=== PATIENT | female | born 1935 | race Caucasian/White ===

== ENCOUNTER 2018-06-01 08:55 | Emergency (ER) | payer MEDICARE, OTHER, SELFPAY ==
[2018-06-01 09:10] VITALS: BP 90/49; PULSE 51; RESP 18; TEMP 36.6; O2SAT 96; BMI 27.4
--- NOTE | 2018-06-01 09:45 | DI.RAD.S_ITS ---
PROCEDURE: XR HAND RT MIN 3V INDICATIONS: right wrist and hand pain after ground level fall TECHNIQUE: 3 views of the hand(s) acquired. COMPARISON: None. FINDINGS: Bones: No acute fracture or dislocation. There is diffuse interphalangeal joint space narrowing and severe first CMC joint osteoarthritis. Soft tissues: No suspicious soft tissue calcifications. IMPRESSION: 1. No acute radiographic findings. If pain persists, repeat study in 5-7 days is recommended to exclude occult fracture. 2. Please note, a questionable distal radial fracture was described on the forearm films. Dedicated views of the wrist would be helpful to evaluate for nondisplaced radial fracture. Alternatively, CT of the wrist would be helpful. Dictated by: Jessica Lai M.D. on 06/01/2018 at 10:08 Approved by: Jessica Lai M.D. on 06/01/2018 at 10:09
--- NOTE | 2018-06-01 09:45 | DI.RAD.S_ITS ---
PROCEDURE: XR WRIST RT MIN 3V INDICATIONS: right hand and wrist pain after ground level fall TECHNIQUE: 4 views of the wrist were acquired. COMPARISON: [facility], CR, XR HAND RT MIN 3V, 06/01/2018, 9:50. FINDINGS: Bones: There is a minimally displaced fracture of the distal ulnar shaft. There is a a subtle radiolucent line is present in the distal radius. It is unclear whether there is a nondisplaced fracture in this region. Scaphoid view: The scaphoid is intact. Soft tissues: No suspicious soft tissue calcifications. IMPRESSION: 1. Minimally displaced ulnar diaphyseal fracture. 2. Questionable distal radial fracture. Dedicated view of the wrist would be helpful to further characterize findings. Dictated by: Jessica Lai M.D. on 06/01/2018 at 10:07 Approved by: Jessica Lai M.D. on 06/01/2018 at 10:08
--- NOTE | 2018-06-01 10:22 | ED.FALL ---
HPI - Fall General Chief Complaint: Fall Stated Complaint: GLF-hit head, thumb pain/bleeding Time Seen by Provider: 06/01/18 10:04 Source: patient and family () Limitations: no limitations History of Present Illness HPI Narrative: This is an 82-year-old female who was stepping out of her vehicle when she tripped or lost her balance and fell onto the ground. Patient did strike her head she fell onto her right side. She denies any loss of consciousness. She has bruising but denies any headache. She has not had any vision changes. She denies any neck or back injuries. She has a little bit of discomfort in her right shoulder trapezius region but has full range of motion and states that she was up and walked into the emergency department. She also has pain in her right wrist and a laceration in the web of her right thumb and 2nd finger. She also has some abrasions and superficial lacerations on her other hand as well. Patient denies any chest pain or shortness of breath. She denies any syncope. She denies any nausea or vomiting. No GI or urinary symptoms. She does not have any numbness or tingling in her extremities. She is able to move her thumb. states it seemed deformed but does not seem that way now she does have sensation in the thumb and is able to flex and extend it although it is uncomfortable. Patient is also able to move her wrist but it is also uncomfortable. complaint: fall Related Data Home Medications Medication Instructions Recorded Confirmed CU/MN/SE/VIT A/VIT B2/VIT C/ 1 tab PO QDAY #0 12/02/12 (#ICAPS ORIGINAL) [CALCIUM WITH VITAMIN] 1 PO QDAY #0 12/02/12 ACETAMINOPHEN 650 mg PO PRN #0 02/26/13 Previous Rx's Medication Instructions Recorded levothyroxine [Synthroid] 75 mcg PO QAM #90 tab 06/19/16 citalopram [Celexa] 20 mg PO QDAY #90 tab 12/21/16 omeprazole 20 mg PO QDAY #90 cap 02/19/17 estradiol [Estrace] 1 gm VAGINAL QDAY #30 gm 04/17/17 nitrofurantoin monohyd/m-cryst 100 mg PO BID #10 cap 04/17/17 [Macrobid] hydrocodone-acetaminophen [[place]] 1 tab PO QID PRN #10 tab 06/01/18 Allergies Allergy/AdvReac Type Severity Reaction Status Date / Time zoledronic acid Allergy Unknown Verified 06/01/18 09:41 WALNUT Allergy Unknown Uncoded 06/01/18 09:41 Review of Systems Review of Systems All systems reviewed & are unremarkable except as noted in HPI and below Constitutional Denies headache(s) ENT Ears, Nose, Mouth, and Throat: Reports as per HPI, Denies vertigo, Denies dizziness, Denies facial pain, Denies headache(s) and Denies neck pain Cardiovascular Denies chest pain, Denies syncope, Denies irregular heart rhythm, Denies lightheadedness, Denies palpitations, Denies dyspnea, Denies dyspnea on exertion and Denies orthopnea Respiratory Denies cough, Denies dyspnea, Denies dyspnea on exertion and Denies wheezing Gastrointestinal Gastrointestinal: Denies abdominal pain, Denies change in bowel habits, Denies diarrhea, Denies nausea and Denies vomiting Genitourinary Reports as per HPI Musculoskeletal Reports as per HPI, Denies abnormal gait, Denies neck pain, Denies numbness and Denies tingling Integumentary/Breasts Reports bleeding lesions (Laceration of right hand) Neurologic Denies abnormal gait, Denies confusion, Denies vertigo, Denies dizziness, Denies syncope, Denies headache(s), Denies focal weakness, Denies memory loss, Denies numbness, Denies other visual disturbances and Denies tingling Psychiatric Denies confusion and Denies memory loss Endocrine Denies palpitations Allergic/Immunologic Denies wheezing Exam Initial Vital Signs Initial Vital Signs: Vital Signs Temperature 97.9 F 06/01/18 09:10 Pulse Rate 51 L 06/01/18 09:10 Respiratory Rate 18 06/01/18 09:10 Blood Pressure 90/49 L 06/01/18 09:10 Pulse Oximetry 96 06/01/18 09:10 Const General: cooperative, well developed and acute distress (Mild) Nutritional Appearance: well nourished Orientation: alert, awake, oriented x3 and not confused [facility] Head: normocephalic, No Sosa's sign, contusion (Right forehead/scalp), No hematoma, No laceration, No raccoon eyes and No periorbital ecchymosis Ears: hearing grossly normal bilaterally, external ears normal and TM's normal bilaterally Nose: external nose normal and nares normal Face and sinus: normal facial exam, sinuses nontender, face symmetric and no ecchymosis Mouth: oral mucosae normal and moist mucous membranes Teeth and gingiva: dentition normal Throat: posterior oropharynx normal Neck Neck: normal visual inspection, full ROM, trachea midline, No lymphadenopathy, No midline deformity and No JVD Lymphatic: No lymphedema Chest Chest: normal inspection of the chest Resp Effort & Inspection: normal respiratory effort, able to speak in complete sentences, no respiratory distress and no use of accessory muscles Auscultation: clear to auscultation bilaterally, no rales, no rhonchi and no wheezes Cardio Rate: regular rate Rhythm: regular rhythm Heart Sounds: no click, no gallops, no murmurs and no rubs Pulses: normal peripheral pulses GI Inspection: non-distended Palpation: soft, no hepatosplenomegaly, No guarding, No pulsatile mass and No tender Auscultation: normal bowel sounds General: No CVA tenderness Back/Spine/Pelvis Back: No back tenderness and No CVA tenderness Cervical Spine: cervical ROM normal, No pain with cervical ROM and No cervical spinal tenderness Thoracic/Lumbar Spine: thoracic and lumbar spine normal to inspection, No thoracic spinal tenderness and No lumbar spinal tenderness Neuro General: alert, oriented x3, gait normal and no focal motor deficits Cranial Nerves: CN's II-XI intact bilaterally Speech: speech normal Gait: normal gait Motor: muscle tone normal throughout and strength 5/5 throughout Sensory Exam: no sensory deficits noted Extrem Right upper extremity: shoulder/upper arm Details: normal to inspection and normal ROM; no tenderness, no abrasions, no ecchymosis, no crepitus and no deformity and hand (Laceration between the 1st and 2nd finger.) Details: tendon exam normal (I am able to visualize the tendon on the lateral side the thumb. Appears intact and patient's exam is normal), normal ROM of fingers and laceration (Laceration is 3.5 cm in length. It is subcu. Tendon is visualized but not lacerated. Patient has 5/5 strength of the thumb and full range of motion. She has normal sensation in all 5 fingers); no swelling and no foreign bodies [facility] Surgical History Status post hip surgery (Acute) S/P total abdominal hysterectomy and bilateral salpingo-oophorectomy Status post breast lumpectomy Status post delivery Status post hernia repair Social History marital status: household members: spouse lives independently: Yes housing: house Smoking Status: Former smoker Procedures Laceration Repair Laceration 1: Site: upper extremity (Right hand between thumb and forefinger) Size (cm): 4 Description: flap and irregular Depth: simple, single layer Local Anesthetic: lidocaine 1% Amount of anesthesia used (mL): 6 Pre-repair: wound explored, irrigated extensively and deep structures intact Skin layer closed with: nylon Size (cm): 4-0 Number of sutures: 9 Technique: simple, interrupted Course Orders Ordered: ED Orders 06/01/18 10:22 CT head/brain wo con Stat Discontinued Medications Tetanus/Diphtheria Toxoids (Td) 0.5 ml IM .ONCE ONE Stop: 06/01/18 13:04 Last Admin: 06/01/18 13:12 Dose: 0.5 ml Consultations Consultation #1: Dr. Pearosn, Images were reviewed. Plan for long arm splint. Patient and family asking if they can follow up after 10 days as they have a trip and will be back in town after the Dr. madsen states that this is fine we discussed Um x-ray imaging as well as patient had a laceration in the web of her thumb. There was some tendon exposure but does appear intact and patient does appear to have good sensation as well as strength and range of motion in the thumb itself. Time: 12:17 Vital Signs - 8 hr 06/01/18 12:00 06/01/18 13:05 Pulse Rate 62 65 Respiratory Rate 17 17 Blood Pressure [Right Arm] 126/61 145/59 H Pulse Oximetry 95 92 MDM - Fall Imaging Data CT scan - head: Radiologist's impression: [address] [address] [address] Scan Report Signed Patient: Delia Meyers MR#: [id number] : 1935 Acct:[id number] Age/Sex: 82 / F Date of Service: 06/01/18 Loc: ED Accession Number: [id number] Procedure: CT head/brain wo con Ordering Provider: Conchita Rios D.O. PROCEDURE: CT HEAD/BRAIN WO CON INDICATIONS: Ground level fall, contusion on forehead TECHNIQUE: Noncontrast 4.5 mm thick angled axial sections acquired from the foramen magnum to the vertex, with coronal and sagittal reformats. For radiation dose reduction, the following was used: automated exposure control, adjustment of mA and/or kV according to patient size. COMPARISON: [facility], CT, SOFT TISSUE NECK W CONTRAST, 10/29/2008, 11:04. FINDINGS: Image quality: Excellent. CSF spaces: Basal cisterns are patent. No extra-axial fluid collections. The ventricles are symmetric in size and shape. Brain: No intracranial bleeds or masses. There is cerebral volume loss for age, with resultant ventricular and sulcal prominence. There are periventricular and deep white matter chronic small vessel ischemic changes. There is intracranial internal carotid artery atherosclerosis. Skull and face: There is right frontal soft tissue swelling. Calvarium and visualized facial bones appear intact, without suspicious lesions. There are extensive arachnoid granulations within the posterior fossa. These are similar in extent to the CT of the neck dated 10/29/08. Sinuses: Visualized sinuses and mastoids are clear. IMPRESSION: 1. No acute intracranial findings. 2. Right frontal soft tissue swelling without underlying calvarial abnormality. 3. Extensive findings likely associated with chronic microvascular ischemic changes. Dictated by: Jessica Lai M.D. on 06/01/2018 at 10:46 Approved by: Jessica Lai M.D. on 06/01/2018 at 10:49 Right wrist x-ray: Radiologist's impression: Patient: Delia Meyers MR#: [id number] : 1935 Acct:[id number] Age/Sex: 82 / F Date of Service: 06/01/18 Loc: ED Accession Number: [id number] Procedure: XR wrist RT min 3V Ordering Provider: Conchita Rios D.O. PROCEDURE: XR WRIST RT MIN 3V INDICATIONS: right hand and wrist pain after ground level fall TECHNIQUE: 4 views of the wrist were acquired. COMPARISON: [facility], CR, XR HAND RT MIN 3V, 06/01/2018, 9:50. FINDINGS: Bones: There is a minimally displaced fracture of the distal ulnar shaft. There is a a subtle radiolucent line is present in the distal radius. It is unclear whether there is a nondisplaced fracture in this region. Scaphoid view: The scaphoid is intact. Soft tissues: No suspicious soft tissue calcifications. IMPRESSION: 1. Minimally displaced ulnar diaphyseal fracture. 2. Questionable distal radial fracture. Dedicated view of the wrist would be helpful to further characterize findings. Right hand x-ray: Radiologist's impression: Patient: Delia Meyers MR#: [id number] : 1935 Acct:[id number] Age/Sex: 82 / F Date of Service: 06/01/18 Loc: ED Accession Number: [id number] Procedure: XR hand RT min 3V Ordering Provider: Conchita Rios D.O. PROCEDURE: XR HAND RT MIN 3V INDICATIONS: right wrist and hand pain after ground level fall TECHNIQUE: 3 views of the hand(s) acquired. COMPARISON: None. FINDINGS: Bones: No acute fracture or dislocation. There is diffuse interphalangeal joint space narrowing and severe first CMC joint osteoarthritis. Soft tissues: No suspicious soft tissue calcifications. IMPRESSION: 1. No acute radiographic findings. If pain persists, repeat study in 5-7 days is recommended to exclude occult fracture. 2. Please note, a questionable distal radial fracture was described on the forearm films. Dedicated views of the wrist would be helpful to evaluate for nondisplaced radial fracture. Alternatively, CT of the wrist would be helpful. Dictated by: Jessica Lai M.D. on 06/01/2018 at 10:08 Approved by: Jessica Lai M.D. on 06/01/2018 at 10:09 [facility] Narrative Medical decision making narrative: Patient's a contusion and based on her age in does have risk for bleeding and head CT was ordered which was negative. Patient had pain in her wrist and so x-ray of hand and wrist was ordered and does show and ulnar fracture. There is questionable radial fracture patient is not tender on that side so less suspicious but she will be splinted regardless. Patient also has a laceration between the 1st and 2nd fingers on her right hand. There was tended noted but does not appear to be involved and does appear to be intact with full range of motion, normal sensation no weakness in with passive and active movement. Patient was sutured. She deferred any pain medication here in the department but was given a script for pain medication. Plan to follow up with Dr. madsen who is her prior orthopedic surgeon and was admissions dean today. He also reviewed her films. Plan for longarm splint. Family did ask if she can follow up after the they are planning on traveling and Dr. Pearson states that would be fine. Patient splint evaluate after placement by nursing and she is NVI afterwards except for some slight numbness in the thumb which occurred after anesthesia for laceration repair. Discharge Plan Departure Patient Disposition: Home Clinical Impression: Fracture of wrist, closed, Contusion of head, Hand laceration Discharge Date/Time: 06/01/18 13:47 Interventions: ED Discharge Assessment Last Done: 06/01/18 13:47 Instructions: DI for Wrist Fracture, DI for Laceration Repair -- Simple Activity Restrictions/Additional Instructions: Call tomorrow morning to set up an appointment with Dr. Pearson for follow-up. return to the emergency department for fevers, signs of infection inter laceration, new or increasing pain any new or severe headaches, vision changes, vomiting, chest pain or shortness of breath or other new or concerning symptoms. You may take pain medication as needed this medication can make you sleepy do not drive, perform hazards activities or make any major decisions while taking it. Wound Care: Keep wound(s) clean and dry. Wash daily with soap and water only. Do not use over the counter products (alcohol or peroxide)on the wounds unless instructed by a physician. If wound condition worsens (increased/expanding redness, developing fluid blisters, or worsening pain), either contact your doctor for an urgent re-assessment , or return to the Emergency Department. Return to the Emergency Department for any new or worsening symptoms. Return to the ED, urgent care, or vist a primary care doctor for removal or suture or awilda in 7-10 days. Splint Care: Keep splint clean and dry. Elevated affected body part to decrease swelling. OK to use ice pack on the affected body part. Use for 15-20 minutes each time, for 5-6x per day. If you develop worsening pain, numbness, tingling, discoloration of the affected body part, loosen the splint by loosening the TAVARES wrap, and either see your doctor for an urgent re-assessment, or return to the Emergency Department. Return to the Emergency Department for any new or worsening symptoms. Prescriptions: New hydrocodone-acetaminophen [[place]] 5-325 mg tablet 1 tab PO QID PRN (Reason: pain) Qty: 10 RF: 0 No Action CU/MN/SE/VIT A/VIT B2/VIT C/ (#ICAPS ORIGINAL) 1 tab PO QDAY Qty: 0 RF: 0 [CALCIUM WITH VITAMIN] 1 PO QDAY Qty: 0 RF: 0 ACETAMINOPHEN 650 mg PO PRN Qty: 0 RF: 0 levothyroxine [Synthroid] 75 MCG tablet 75 mcg PO QAM Qty: 90 RF: 3 citalopram [Celexa] 20 MG tablet 20 mg PO QDAY Qty: 90 RF: 0 omeprazole 20 MG capsule,delayed release(DR/EC) 20 mg PO QDAY Qty: 90 RF: 0 estradiol [Estrace] 0.01 % cream 1 gm Vaginal QDAY Qty: 30 RF: 0 nitrofurantoin monohyd/m-cryst [Macrobid] 100 MG capsule 100 mg PO BID Qty: 10 RF: 0
[2018-06-01 10:59] VITALS: BP 135/56; PULSE 61; RESP 16; O2SAT 96
[2018-06-01 12:00] VITALS: BP 126/61; PULSE 62; RESP 17; O2SAT 95
--- NOTE | 2018-06-01 12:28 | ED_ITS ---
HPI - Fall General Chief Complaint: Fall Stated Complaint: GLF-hit head, thumb pain/bleeding Time Seen by Provider: 06/01/18 10:04 Source: patient and family () Limitations: no limitations History of Present Illness HPI Narrative: This is an 82-year-old female who was stepping out of her vehicle when she tripped or lost her balance and fell onto the ground. Patient did strike her head she fell onto her right side. She denies any loss of consciousness. She has bruising but denies any headache. She has not had any vision changes. She denies any neck or back injuries. She has a little bit of discomfort in her right shoulder trapezius region but has full range of motion and states that she was up and walked into the emergency department. She also has pain in her right wrist and a laceration in the web of her right thumb and 2nd finger. She also has some abrasions and superficial lacerations on her other hand as well. Patient denies any chest pain or shortness of breath. She denies any syncope. She denies any nausea or vomiting. No GI or urinary symptoms. She does not have any numbness or tingling in her extremities. She is able to move her thumb. states it seemed deformed but does not seem that way now she does have sensation in the thumb and is able to flex and extend it although it is uncomfortable. Patient is also able to move her wrist but it is also uncomfortable. complaint: fall Related Data Home Medications Medication Instructions Recorded Confirmed CU/MN/SE/VIT A/VIT B2/VIT C/ 1 tab PO QDAY #0 12/02/12 (#ICAPS ORIGINAL) [CALCIUM WITH VITAMIN] 1 PO QDAY #0 12/02/12 ACETAMINOPHEN 650 mg PO PRN #0 02/26/13 Previous Rx's Medication Instructions Recorded levothyroxine [Synthroid] 75 mcg PO QAM #90 tab 06/19/16 citalopram [Celexa] 20 mg PO QDAY #90 tab 12/21/16 omeprazole 20 mg PO QDAY #90 cap 02/19/17 estradiol [Estrace] 1 gm VAGINAL QDAY #30 gm 04/17/17 nitrofurantoin monohyd/m-cryst 100 mg PO BID #10 cap 04/17/17 [Macrobid] hydrocodone-acetaminophen [[place]] 1 tab PO QID PRN #10 tab 06/01/18 Allergies Allergy/AdvReac Type Severity Reaction Status Date / Time zoledronic acid Allergy Unknown Verified 06/01/18 09:41 WALNUT Allergy Unknown Uncoded 06/01/18 09:41 Review of Systems Review of Systems All systems reviewed & are unremarkable except as noted in HPI and below Constitutional Denies headache(s) ENT Ears, Nose, Mouth, and Throat: Reports as per HPI, Denies vertigo, Denies dizziness, Denies facial pain, Denies headache(s) and Denies neck pain Cardiovascular Denies chest pain, Denies syncope, Denies irregular heart rhythm, Denies lightheadedness, Denies palpitations, Denies dyspnea, Denies dyspnea on exertion and Denies orthopnea Respiratory Denies cough, Denies dyspnea, Denies dyspnea on exertion and Denies wheezing Gastrointestinal Gastrointestinal: Denies abdominal pain, Denies change in bowel habits, Denies diarrhea, Denies nausea and Denies vomiting Genitourinary Reports as per HPI Musculoskeletal Reports as per HPI, Denies abnormal gait, Denies neck pain, Denies numbness and Denies tingling Integumentary/Breasts Reports bleeding lesions (Laceration of right hand) Neurologic Denies abnormal gait, Denies confusion, Denies vertigo, Denies dizziness, Denies syncope, Denies headache(s), Denies focal weakness, Denies memory loss, Denies numbness, Denies other visual disturbances and Denies tingling Psychiatric Denies confusion and Denies memory loss Endocrine Denies palpitations Allergic/Immunologic Denies wheezing Exam Initial Vital Signs Initial Vital Signs: Vital Signs Temperature 97.9 F 06/01/18 09:10 Pulse Rate 51 L 06/01/18 09:10 Respiratory Rate 18 06/01/18 09:10 Blood Pressure 90/49 L 06/01/18 09:10 Pulse Oximetry 96 06/01/18 09:10 Const General: cooperative, well developed and acute distress (Mild) Nutritional Appearance: well nourished Orientation: alert, awake, oriented x3 and not confused [facility] Head: normocephalic, No Sosa's sign, contusion (Right forehead/scalp), No hematoma, No laceration, No raccoon eyes and No periorbital ecchymosis Ears: hearing grossly normal bilaterally, external ears normal and TM's normal bilaterally Nose: external nose normal and nares normal Face and sinus: normal facial exam, sinuses nontender, face symmetric and no ecchymosis Mouth: oral mucosae normal and moist mucous membranes Teeth and gingiva: dentition normal Throat: posterior oropharynx normal Neck Neck: normal visual inspection, full ROM, trachea midline, No lymphadenopathy, No midline deformity and No JVD Lymphatic: No lymphedema Chest Chest: normal inspection of the chest Resp Effort & Inspection: normal respiratory effort, able to speak in complete sentences, no respiratory distress and no use of accessory muscles Auscultation: clear to auscultation bilaterally, no rales, no rhonchi and no wheezes Cardio Rate: regular rate Rhythm: regular rhythm Heart Sounds: no click, no gallops, no murmurs and no rubs Pulses: normal peripheral pulses GI Inspection: non-distended Palpation: soft, no hepatosplenomegaly, No guarding, No pulsatile mass and No tender Auscultation: normal bowel sounds General: No CVA tenderness Back/Spine/Pelvis Back: No back tenderness and No CVA tenderness Cervical Spine: cervical ROM normal, No pain with cervical ROM and No cervical spinal tenderness Thoracic/Lumbar Spine: thoracic and lumbar spine normal to inspection, No thoracic spinal tenderness and No lumbar spinal tenderness Neuro General: alert, oriented x3, gait normal and no focal motor deficits Cranial Nerves: CN's II-XI intact bilaterally Speech: speech normal Gait: normal gait Motor: muscle tone normal throughout and strength 5/5 throughout Sensory Exam: no sensory deficits noted Extrem Right upper extremity: shoulder/upper arm Details: normal to inspection and normal ROM; no tenderness, no abrasions, no ecchymosis, no crepitus and no deformity and hand (Laceration between the 1st and 2nd finger.) Details: tendon exam normal (I am able to visualize the tendon on the lateral side the thumb. Appears intact and patient's exam is normal), normal ROM of fingers and laceration (Laceration is 3.5 cm in length. It is subcu. Tendon is visualized but not lacerated. Patient has 5/5 strength of the thumb and full range of motion. She has normal sensation in all 5 fingers); no swelling and no foreign bodies [facility] Surgical History Status post hip surgery (Acute) S/P total abdominal hysterectomy and bilateral salpingo-oophorectomy Status post breast lumpectomy Status post delivery Status post hernia repair Social History marital status: household members: spouse lives independently: Yes housing: house Smoking Status: Former smoker Procedures Laceration Repair Laceration 1: Site: upper extremity (Right hand between thumb and forefinger) Size (cm): 4 Description: flap and irregular Depth: simple, single layer Local Anesthetic: lidocaine 1% Amount of anesthesia used (mL): 6 Pre-repair: wound explored, irrigated extensively and deep structures intact Skin layer closed with: nylon Size (cm): 4-0 Number of sutures: 9 Technique: simple, interrupted Course Orders Ordered: ED Orders 06/01/18 10:22 CT head/brain wo con Stat Discontinued Medications Tetanus/Diphtheria Toxoids (Td) 0.5 ml IM .ONCE ONE Stop: 06/01/18 13:04 Last Admin: 06/01/18 13:12 Dose: 0.5 ml Consultations Consultation #1: Dr. Pearson, Images were reviewed. Plan for long arm splint. Patient and family asking if they can follow up after 10 days as they have a trip and will be back in town after the Dr. madsen states that this is fine we discussed Um x-ray imaging as well as patient had a laceration in the web of her thumb. There was some tendon exposure but does appear intact and patient does appear to have good sensation as well as strength and range of motion in the thumb itself. Time: 12:17 Vital Signs - 8 hr 06/01/18 12:00 06/01/18 13:05 Pulse Rate 62 65 Respiratory Rate 17 17 Blood Pressure [Right Arm] 126/61 145/59 H Pulse Oximetry 95 92 MDM - Fall Imaging Data CT scan - head: Radiologist's impression: [address] [id number] [address] Scan Report Signed Patient: Delia Meyers MR#: [id number] : 1935 Acct:[id number] Age/Sex: 82 / F Date of Service: 06/01/18 Loc: ED Accession Number: [id number] Procedure: CT head/brain wo con Ordering Provider: Conchita Rios D.O. PROCEDURE: CT HEAD/BRAIN WO CON INDICATIONS: Ground level fall, contusion on forehead TECHNIQUE: Noncontrast 4.5 mm thick angled axial sections acquired from the foramen magnum to the vertex, with coronal and sagittal reformats. For radiation dose reduction, the following was used: automated exposure control, adjustment of mA and/or kV according to patient size. COMPARISON: [facility], CT, SOFT TISSUE NECK W CONTRAST, 10/29/2008, 11:04. FINDINGS: Image quality: Excellent. CSF spaces: Basal cisterns are patent. No extra-axial fluid collections. The ventricles are symmetric in size and shape. Brain: No intracranial bleeds or masses. There is cerebral volume loss for age , with resultant ventricular and sulcal prominence. There are periventricular and deep white matter chronic small vessel ischemic changes. There is intracranial internal carotid artery atherosclerosis. Skull and face: There is right frontal soft tissue swelling. Calvarium and visualized facial bones appear intact, without suspicious lesions. There are extensive arachnoid granulations within the posterior fossa. These are similar in extent to the CT of the neck dated 10/29/08. Sinuses: Visualized sinuses and mastoids are clear. IMPRESSION: 1. No acute intracranial findings. 2. Right frontal soft tissue swelling without underlying calvarial abnormality. 3. Extensive findings likely associated with chronic microvascular ischemic changes. Dictated by: Jessica Lai M.D. on 06/01/2018 at 10:46 Approved by: Jessica Lai M.D. on 06/01/2018 at 10:49 Right wrist x-ray: Radiologist's impression: Patient: Delia Meyers MR#: [id number] : 1935 Acct:[id number] Age/Sex: 82 / F Date of Service: 06/01/18 Loc: ED Accession Number: [id number] Procedure: XR wrist RT min 3V Ordering Provider: Conchita Rios D.O. PROCEDURE: XR WRIST RT MIN 3V INDICATIONS: right hand and wrist pain after ground level fall TECHNIQUE: 4 views of the wrist were acquired. COMPARISON: [facility], CR, XR HAND RT MIN 3V, 06/01/2018, 9:50. FINDINGS: Bones: There is a minimally displaced fracture of the distal ulnar shaft. There is a a subtle radiolucent line is present in the distal radius. It is unclear whether there is a nondisplaced fracture in this region. Scaphoid view: The scaphoid is intact. Soft tissues: No suspicious soft tissue calcifications. IMPRESSION: 1. Minimally displaced ulnar diaphyseal fracture. 2. Questionable distal radial fracture. Dedicated view of the wrist would be helpful to further characterize findings. Right hand x-ray: Radiologist's impression: Patient: Delia Meyers MR#: [id number] : 1935 Acct:[id number] Age/Sex: 82 / F Date of Service: 06/01/18 Loc: ED Accession Number: [id number] Procedure: XR hand RT min 3V Ordering Provider: Conchita Rios D.O. PROCEDURE: XR HAND RT MIN 3V INDICATIONS: right wrist and hand pain after ground level fall TECHNIQUE: 3 views of the hand(s) acquired. COMPARISON: None. FINDINGS: Bones: No acute fracture or dislocation. There is diffuse interphalangeal joint space narrowing and severe first CMC joint osteoarthritis. Soft tissues: No suspicious soft tissue calcifications. IMPRESSION: 1. No acute radiographic findings. If pain persists, repeat study in 5-7 days is recommended to exclude occult fracture. 2. Please note, a questionable distal radial fracture was described on the forearm films. Dedicated views of the wrist would be helpful to evaluate for nondisplaced radial fracture. Alternatively, CT of the wrist would be helpful. Dictated by: Jessica Lai M.D. on 06/01/2018 at 10:08 Approved by: Jessica Lai M.D. on 06/01/2018 at 10:09 [facility] Narrative Medical decision making narrative: Patient's a contusion and based on her age in does have risk for bleeding and head CT was ordered which was negative. Patient had pain in her wrist and so x-ray of hand and wrist was ordered and does show and ulnar fracture. There is questionable radial fracture patient is not tender on that side so less suspicious but she will be splinted regardless. Patient also has a laceration between the 1st and 2nd fingers on her right hand. There was tended noted but does not appear to be involved and does appear to be intact with full range of motion, normal sensation no weakness in with passive and active movement. Patient was sutured. She deferred any pain medication here in the department but was given a script for pain medication. Plan to follow up with Dr. madsen who is her prior orthopedic surgeon and was paving contractor today. He also reviewed her films. Plan for longarm splint. Family did ask if she can follow up after the they are planning on traveling and Dr. Pearson states that would be fine. Patient splint evaluate after placement by nursing and she is NVI afterwards except for some slight numbness in the thumb which occurred after anesthesia for laceration repair. Discharge Plan Departure Patient Disposition: Home Clinical Impression: Fracture of wrist, closed, Contusion of head, Hand laceration Discharge Date/Time: 06/01/18 13:47 Interventions: ED Discharge Assessment Last Done: 06/01/18 13:47 Instructions: DI for Wrist Fracture, DI for Laceration Repair -- Simple Activity Restrictions/Additional Instructions: Call tomorrow morning to set up an appointment with Dr. Pearson for follow-up. return to the emergency department for fevers, signs of infection inter laceration, new or increasing pain any new or severe headaches, vision changes, vomiting, chest pain or shortness of breath or other new or concerning symptoms. You may take pain medication as needed this medication can make you sleepy do not drive, perform hazards activities or make any major decisions while taking it. Wound Care: Keep wound(s) clean and dry. Wash daily with soap and water only. Do not use over the counter products (alcohol or peroxide)on the wounds unless instructed by a physician. If wound condition worsens (increased/expanding redness, developing fluid blisters, or worsening pain), either contact your doctor for an urgent re- assessment , or return to the Emergency Department. Return to the Emergency Department for any new or worsening symptoms. Return to the ED, urgent care, or vist a primary care doctor for removal or suture or awilda in 7-10 days. Splint Care: Keep splint clean and dry. Elevated affected body part to decrease swelling. OK to use ice pack on the affected body part. Use for 15-20 minutes each time, for 5-6x per day. If you develop worsening pain, numbness, tingling, discoloration of the affected body part, loosen the splint by loosening the TAVARES wrap, and either see your doctor for an urgent re-assessment, or return to the Emergency Department. Return to the Emergency Department for any new or worsening symptoms. Prescriptions: New hydrocodone-acetaminophen [[place]] 5-325 mg tablet 1 tab PO QID PRN (Reason: pain) Qty: 10 RF: 0 No Action CU/MN/SE/VIT A/VIT B2/VIT C/ (#ICAPS ORIGINAL) 1 tab PO QDAY Qty: 0 RF: 0 [CALCIUM WITH VITAMIN] 1 PO QDAY Qty: 0 RF: 0 ACETAMINOPHEN 650 mg PO PRN Qty: 0 RF: 0 levothyroxine [Synthroid] 75 MCG tablet 75 mcg PO QAM Qty: 90 RF: 3 citalopram [Celexa] 20 MG tablet 20 mg PO QDAY Qty: 90 RF: 0 omeprazole 20 MG capsule,delayed release(DR/EC) 20 mg PO QDAY Qty: 90 RF: 0 estradiol [Estrace] 0.01 % cream 1 gm Vaginal QDAY Qty: 30 RF: 0 nitrofurantoin monohyd/m-cryst [Macrobid] 100 MG capsule 100 mg PO BID Qty: 10 RF: 0
[2018-06-01 13:05] VITALS: BP 145/59; PULSE 65; RESP 17; O2SAT 92
[2018-06-01] MEDS: TETANUS DIPHTHERIA TOXOIDS 0.5 ML VIAL IM (13:12)
--- NOTE | 2018-06-01 13:39 | PC.NURSE ---
Dr. Rios sutured patient. assisted at bedside. pt required 9 stitches.tolerated procedure well.
== END 2018-06-01 13:47 | disposition home or self-care (01) ==
PROVIDERS: Emergency Provider Emergency Medicine; Family Provider Family Medicine; PCP Family Medicine
DX: S62.101A Fracture of unspecified carpal bone, right wrist, initial encounter for closed fracture (principal); S00.93XA Contusion of unspecified part of head, initial encounter; S61.411A Laceration without foreign body of right hand, initial encounter; W01.0XXA Fall on same level from slipping, tripping and stumbling without subsequent striking against object, initial encounter
CPT/HCPCS: 12002; 29105; 70450; 73110; 73130; 90471; 90714; 99284

== ENCOUNTER → 2018-06-24 16:51 | Outpatient (CLI) | payer MEDICARE, OTHER, SELFPAY | PROVIDERS: Family Provider Family Medicine; PCP Family Medicine; Visit Provider Physician Assistant | DX: L02.91 Cutaneous abscess, unspecified (principal) | CPT/HCPCS: 87070; 87075; 87077; 87147; 87186; 87205 ==

== ENCOUNTER → 2018-07-19 11:43 | Outpatient (CLI) | payer MEDICARE, OTHER, SELFPAY ==
[2018-07-19 12:29] LABS: Alanine Aminotransferase 19 IU/L (9-52); Albumin 4.3 g/dL (3.5-5.0); Albumin Globulin Ratio 1.6 (1.0-2.8); Alkaline Phosphatase 68 U/L (38-126); Aspartate Aminotransferase 18 IU/L (14-36); BUN Creatinine Ratio 18.6 (6-22); Bilirubin Total 0.4 mg/dL (0.2-1.3); Blood Urea Nitrogen 13 mg/dL (7-17); Calcium 9.3 mg/dL (8.4-10.2); Carbon Dioxide 24 mmol/L (22-32); Chloride 105 mmol/L (98-107); Cholesterol 206 mg/dL (140-199); Estimated Glomerular Filt Rate > 60.0 mL/min (>60); Globulin 2.7 g/dL (1.7-4.1); Glucose 98 mg/dL (80-110); HDL Cholesterol 51 mg/dL (40-60); HEMOLYSIS < 15 (0-50); LDL Cholesterol Calculated 117 mg/dL (<100); Potassium 4.1 mmol/L (3.4-5.1); Sodium 143 mmol/L (137-145); Triglycerides 191 mg/dL (35-150)
[2018-07-19 12:48] LABS: Free T4, Direct Thyroxine 1.48 ng/dL (0.78-2.19)
[2018-07-19 12:49] LABS: Vitamin D 25 Hydroxy (D3) 30.3 ng/mL (30.0-100.0)
[2018-07-19 13:02] LABS: Thyroid Stimulating Hormone 2.09 uIU/mL (0.47-4.68)
== END ==
PROVIDERS: PCP Physician Assistant; Visit Provider Physician Assistant
DX: E03.9 Hypothyroidism, unspecified (principal); M81.0 Age-related osteoporosis without current pathological fracture; E78.00 Pure hypercholesterolemia, unspecified
CPT/HCPCS: 36415; 80053; 80061; 82306; 84439; 84443

== ENCOUNTER → 2018-09-17 10:55 | Outpatient (CLI) | payer MEDICARE, OTHER, SELFPAY ==
[2018-09-17 12:29] LABS: Add Manual Diff / Slide Review NO; Basophils Percent Auto 0.5 % (0-2); Eosinophils Percent Auto 1.9 % (2-4); Hematocrit 41.6 % (36-46); Hemoglobin 13.7 g/dL (12.0-16.0); Mean Corpuscular Hemoglobin 30.2 PG (26-34); Mean Corpuscular Volume 91.4 fL (80-100); Monocytes Percent Auto 10.3 % (3-14); Neutrophils Absolute Auto 2800 /uL (1500-7000); Neutrophils Percent Auto 59.3 % (50-75); Platelet Count 199 X10^3/uL (150-400); Red Blood Cell Count 4.55 X10^6/uL (4.0-5.2); Red Cell Distribution Width 15.1 % (11.6-14.8); White Blood Cell Count 4.7 X10^3/uL (4.5-11.0)
[2018-09-17 12:34] LABS: HEMOLYSIS < 15 (0-50); Iron 87 ug/dL (37-170)
[2018-09-17 12:45] LABS: Percent Iron Saturation 25 % (15-50); Total Iron Binding Capacity 345 ug/dL (265-497); Transferrin 286 mg/dL (206-381)
[2018-09-17 13:09] LABS: Ferritin 20.7 ng/mL (11.1-264)
[2018-09-17 13:22] LABS: Vitamin B12 323 pg/mL (239-931)
[2018-09-17 16:54] LABS: Vitamin D 25 Hydroxy (D3) 30.1 ng/mL (30.0-100.0)
== END ==
PROVIDERS: PCP Physician Assistant; Visit Provider Physician Assistant
DX: M81.0 Age-related osteoporosis without current pathological fracture (principal); R53.83 Other fatigue; R79.89 Other specified abnormal findings of blood chemistry
CPT/HCPCS: 36415; 82306; 82607; 82728; 83540; 83550; 85025

== ENCOUNTER → 2018-10-22 16:25 | Outpatient (CLI) | payer MEDICARE, OTHER, SELFPAY ==
[2018-10-22 18:29] LABS: Free T3, Triiodothyronine Free 3.42 pg/mL (2.77-5.27); Free T4, Direct Thyroxine 1.46 ng/dL (0.78-2.19)
[2018-10-22 18:42] LABS: Thyroid Stimulating Hormone 1.43 uIU/mL (0.47-4.68)
== END ==
PROVIDERS: PCP Physician Assistant; Visit Provider Physician Assistant
DX: E03.9 Hypothyroidism, unspecified (principal); N63.10 Unspecified lump in the right breast, unspecified quadrant; Z85.3 Personal history of malignant neoplasm of breast
CPT/HCPCS: 36415; 84439; 84443; 84481

== ENCOUNTER → 2018-11-04 09:33 | Outpatient (CLI) | payer MEDICARE, OTHER, SELFPAY ==
--- NOTE | 2018-11-04 09:34 | DI.MG.S_ITS ---
BILATERAL DIGITAL DIAGNOSTIC MAMMOGRAM 3D/2D: 11/04/2018 CLINICAL: Right breast lump. History of breast cancer. Comparison is made to exams dated: 06/03/2017 mammogram, 05/24/2016 mammogram, and 05/13/2015 mammogram - [facility]. The tissue of both breasts is heterogeneously dense. This may lower the sensitivity of mammography. There is a triangular marker overlying the skin of the upper outer right breast at the site of the patient's reported palpable abnormality. There is an approximately 1.0 cm oval indistinct asymmetry underlying the triangular marker. There are postsurgical changes with dystrophic calcifications in the upper inner right breast with overlying linear scar marker. A linear scar marker overlies the upper inner left breast. There are bilateral breast calcifications. IMPRESSION: INCOMPLETE: NEEDS ADDITIONAL IMAGING EVALUATION Approximately 1.0 cm oval indistinct asymmetry in the upper outer right breast underlying the site of the patient's reported focal palpable abnormality. Targeted diagnostic ultrasound recommended for further evaluation, which will be performed immediately following this exam. This exam was interpreted at Station ID: [id number]. NOTE: For mammograms, a report in lay terms will be sent to the patient. Approximately 15% of breast malignancies will not be visualized mammographically. In the management of a palpable breast mass, a negative mammogram must not discourage biopsy of a clinically suspicious lesion. Electronically Signed By: Delio rGossman M.D. ecl/:11/04/2018 10:49:48 copy to: Baljinder Worrell letter sent: Additional Imaging Needed ACR BI-RADS Category 0: Incomplete 3340F
--- NOTE | 2018-11-04 09:34 | DI.US.S_ITS ---
LIMITED ULTRASOUND OF RIGHT BREAST: 11/04/2018 CLINICAL: Palpable right breast lump. Comparison is made to exams dated: 11/04/2018 mammogram, 06/03/2017 mammogram, 05/24/2016 mammogram, 05/13/2015 mammogram, 05/11/2014 mammogram, and 05/07/2013 mammogram - [facility]. Real-time and Doppler ultrasound of the right breast upper outer quadrant were performed. Moeller scale images of the real-time examination were reviewed. Targeted ultrasound of the right breast at the site of the patient's palpable concern at 10:00 position 3 cm from the nipple demonstrates a 1.1 x 0.7 x 0.8 cm oval circumscribed hypoechoic cyst with internal dependent echogenic debris. The cyst and debris demonstrate no internal vascularity on Doppler ultrasound. There is an additional 0.8 x 0.6 x 0.9 cm oval circumscribed hypoechoic cyst with internal dependent echogenic debris in the right breast at 10:30 position 5 cm from the nipple there is a cyst and debris demonstrate no internal vascularity on Doppler ultrasound. Multiple smaller appearing cysts with similar morphologic features are noted adjacent these 2 larger cysts described above. IMPRESSION: PROBABLY BENIGN Multiple avascular oval circumscribed hypoechoic cysts with internal echogenic debris in the upper outer quadrant of the right breast at the site of the patient's palpable concern, measuring up to 1.1 cm in greatest diameter. These cysts may represent complicated cysts or oil cysts/the sequela of fat necrosis. A followup diagnostic mammogram and ultrasound in 6 months is recommended to demonstrate stability and to exclude underlying malignancy. The patient is advised to monitor her breasts and to return sooner for re-evaluation should she feel anything grow or change. This exam was interpreted at Station ID: [id number]. Electronically Signed By: Delio Grossman M.D. ecl/:11/04/2018 12:11:10 copy to: Baljinder Worrell letter sent: Followup Recommended Ultrasound BI-RADS: 3 Probably benign
== END ==
PROVIDERS: PCP Physician Assistant; Visit Provider Physician Assistant
DX: R92.8 Other abnormal and inconclusive findings on diagnostic imaging of breast (principal); N60.01 Solitary cyst of right breast; Z85.3 Personal history of malignant neoplasm of breast
CPT/HCPCS: 76642; 77066; G0279

== ENCOUNTER → 2019-05-12 15:02 | Outpatient (CLI) | payer MEDICARE, OTHER, SELFPAY ==
[2019-05-12 16:00] LABS: Add Manual Diff / Slide Review NO; Basophils Absolute Auto 0 /uL (0-100); Basophils Percent Auto 0.8 % (0-2); Eosinophils Absolute Auto 100 /uL (0-450); Eosinophils Percent Auto 1.2 % (2-4); Hematocrit 40.6 % (36-46); Hemoglobin 13.7 g/dL (12.0-16.0); Lymphocytes Absolute Auto 1500 /uL (1100-4500); Lymphocytes Percent Auto 29.4 % (25-40); Mean Corpuscular HGB Conc 33.8 % (30-36); Mean Corpuscular Hemoglobin 31.5 PG (26-34); Mean Corpuscular Volume 93.1 fL (80-100); Monocytes Absolute Auto 400 /uL (0-900); Monocytes Percent Auto 8.2 % (3-14); Neutrophils Absolute Auto 3200 /uL (1500-7000); Neutrophils Percent Auto 60.4 % (50-75); Platelet Count 185 X10^3/uL (150-400); Red Blood Cell Count 4.36 X10^6/uL (4.0-5.2); Red Cell Distribution Width 13.6 % (11.6-14.8); White Blood Cell Count 5.2 X10^3/uL (4.5-11.0)
[2019-05-12 16:18] LABS: Alanine Aminotransferase 15 IU/L (9-52); Albumin 4.2 g/dL (3.5-5.0); Albumin Globulin Ratio 1.6 (1.0-2.8); Alkaline Phosphatase 58 U/L (38-126); Aspartate Aminotransferase 20 IU/L (14-36); BUN Creatinine Ratio 31.4 (6-22); Bilirubin Total 0.4 mg/dL (0.2-1.3); Blood Urea Nitrogen 22 mg/dL (7-17); Carbon Dioxide 25 mmol/L (22-32); Chloride 105 mmol/L (98-107); Estimated Glomerular Filt Rate > 60.0 mL/min (>60); Globulin 2.7 g/dL (1.7-4.1); Glucose 91 mg/dL (80-110); HEMOLYSIS < 15 (0-50); Potassium 4.4 mmol/L (3.4-5.1); Sodium 139 mmol/L (137-145); Total Protein 6.9 g/dL (6.3-8.2)
[2019-05-12 17:07] LABS: Vitamin B12 415 pg/mL (239-931)
[2019-05-12 17:11] LABS: Thyroid Stimulating Hormone 2.42 uIU/mL (0.47-4.68)
== END ==
PROVIDERS: PCP Physician Assistant; Visit Provider Physician Assistant
DX: E53.8 Deficiency of other specified B group vitamins (principal); E55.9 Vitamin D deficiency, unspecified; H53.9 Unspecified visual disturbance; M81.0 Age-related osteoporosis without current pathological fracture; R01.1 Cardiac murmur, unspecified; R51 Headache; E03.9 Hypothyroidism, unspecified; E78.2 Mixed hyperlipidemia
CPT/HCPCS: 36415; 80053; 82607; 84443; 85025

== ENCOUNTER → 2019-05-20 13:28 | Outpatient (CLI) | payer MEDICARE, OTHER, SELFPAY ==
--- NOTE | 2019-05-20 13:32 | DI.US.S_ITS ---
LIMITED ULTRASOUND OF RIGHT BREAST: 05/20/2019 CLINICAL: 6 month follow-up. Comparison is made to exams dated: 05/20/2019 mammogram, 11/04/2018 ultrasound, 11/04/2018 mammogram, 06/03/2017 mammogram, 05/13/2015 mammogram, and 05/11/2014 mammogram - [facility]. Real-time and Doppler ultrasound of the right breast upper outer quadrant were performed. Moeller scale images of the real-time examination were reviewed. There are numerous benign oval minimally complicated cysts in the right breast superior lateral quadrant middle depth. The largest are 1.3 cm and 0.9 cm. These abnormalities are not significantly changed in size, but many now show peripheral calcification. Internal debris in some of the larger cysts has resolved. These cysts correspond to the mammogram. No new solid masses. IMPRESSION: BENIGN There is no sonographic evidence of malignancy. The multiple peripherally calcified cysts in the right breast are consistent with oil cysts and are benign. Return to annual mammogram screening schedule is recommended. Findings and recommendations were conveyed to the patient at time of exam. This exam was interpreted at Station ID: [id number]. Electronically Signed By: Lizeth ott/:05/20/2019 16:54:34 copy to: Baljinder Worrell letter sent: Normal Exam Ultrasound BI-RADS: 2 Benign
--- NOTE | 2019-05-20 13:32 | DI.MG.S_ITS ---
UNILATERAL RIGHT DIGITAL DIAGNOSTIC MAMMOGRAM 3D/2D: 05/20/2019 CLINICAL: Patient returns for a 6 month follow up of the right breast. Personal history of right breast cancer. Comparison is made to exams dated: 11/04/2018 mammogram, 06/03/2017 mammogram, and 05/24/2016 mammogram - [facility]. The tissue of right breast is heterogeneously dense. This may lower the sensitivity of mammography. There are multiple oil cysts with new peripheral smooth rim calcifications in the right breast superior lateral quadrant middle depth. These are seen in additional views. These correlate as palpated but were not seen on the prior mammogram. No other significant masses or calcifications are seen in the breast. IMPRESSION: INCOMPLETE: NEEDS ADDITIONAL IMAGING EVALUATION Multiple peripherally calcified cysts now visible in the right breast corresponding to palpable abnormality. An ultrasound is to confirm benignity. This was performed immediately following this exam. This exam was interpreted at Station ID: [id number]. NOTE: For mammograms, a report in lay terms will be sent to the patient. Approximately 15% of breast malignancies will not be visualized mammographically. In the management of a palpable breast mass, a negative mammogram must not discourage biopsy of a clinically suspicious lesion. Electronically Signed By: Lizeth ott/:05/20/2019 16:47:59 copy to: Baljinder APONTE BI-RADS Category 0: Incomplete 3340F
== END ==
PROVIDERS: PCP Physician Assistant; Visit Provider Physician Assistant
DX: R92.8 Other abnormal and inconclusive findings on diagnostic imaging of breast (principal); N60.01 Solitary cyst of right breast; Z85.3 Personal history of malignant neoplasm of breast
CPT/HCPCS: 76642; 77065; G0279

== ENCOUNTER → 2019-06-01 09:04 | Outpatient (CLI) | payer MEDICARE, OTHER, SELFPAY ==
--- NOTE | 2019-06-01 09:06 | DI.ECHO.S_ITS ---
[facility] +---------+ : : [address] : : : : [id number] : : : : Phone: [phone]+ Echocardiogram Report + + :Name: EMIR BRADLEY Study Date: 06/01/2019 Height: 66 in : :[facility] Weight: 175 lb : : Gender: Female BSA: 1.9 m2 : :: 1935 Age: 83 yrs BP: 128/58 mmHg: :Reason For Study: MURMUR : :Ordering Physician: SHIN : :Geni Ace Performed By: Maye Montague : :Referring: GENI ACE : + + Interpretation Summary The left ventricle is normal in size. The left ventricular ejection fraction is normal. The ejection fraction is estimated to be 55-60%. There are no obvious focal wall motion abnormalities noted but poor endocardial definition reduces the sensitivity for the detection of such. Diastolic parameters suggest a relaxation abnormality of the left ventricle, consistent with probable normal filling pressures. The right ventricle is not well visualized. Right ventricular systolic pressure is estimated to be 22 mmHg plus the clinically estimated CVP which cannot be estimated on this exam. The left atrium is severely dilated. Right atrial size is normal. The aortic valve is trileaflet. The aortic valve is mildly calcified. There is no hemodynamically significant valvular aortic stenosis. There is mild aortic regurgitation which has decreased since prior study. There is no other significant valvular heart disease. The aortic root is normal size. Procedure: A two-dimensional transthoracic echocardiogram with color flow and Doppler was performed. The study quality was technically difficult. Comparison is made with the echocardiogram of 07/17/11. The patient was in normal sinus rhythm during the exam. Left Ventricle: The left ventricle is normal in size. There is mild proximal septal thickening noted. The left ventricular ejection fraction is normal. The ejection fraction is estimated to be 55-60%. There are no obvious focal wall motion abnormalities noted but poor endocardial definition reduces the sensitivity for the detection of such. Diastolic parameters suggest a relaxation abnormality of the left ventricle, consistent with probable normal filling pressures. Right Ventricle: The right ventricle is not well visualized. Atria: The left atrium is severely dilated. Right atrial size is normal. There is no Doppler evidence for an interatrial shunt. Mitral Valve: The mitral valve leaflets are mildly calcified. There is mild to moderate mitral annular calcification. There is no mitral valve stenosis. There is trace mitral regurgitation. Aortic Valve: The aortic valve is trileaflet. The aortic valve is mildly calcified. There is no hemodynamically significant valvular aortic stenosis. The aortic valve area is 1.9 centimeters squared by planimetry. The calculated aortic valve area is 1.9 cm2. The peak aortic velocity is 1.7 m/sec. There is mild aortic regurgitation. Tricuspid Valve: The tricuspid valve is normal. There is mild tricuspid regurgitation. Right ventricular systolic pressure is estimated to be 22 mmHg plus the clinically estimated CVP which cannot be estimated on this exam. Pulmonic Valve: The pulmonic valve is not well seen, but is grossly normal. There is trace pulmonic regurgitation. There is no other significant valvular heart disease. Great Vessels: The aortic root is normal size. The ascending aorta is mildly enlarged. The aortic arch is at the upper limits of normal in size. The pulmonary is not well visualized. The inferior vena cava was not visualized. Pericardium/ Pleura There is no pericardial effusion. There is no pleural effusion. MMode/2D Measurements & Calculations LVIDd: 4.8 cm LVOT diam: 2.1 cm LVIDs: 2.6 cm Ao root diam: 3.8 cm FS: 45.0 % asc Aorta Diam: 3.9 cm IVSd: 1.3 cm Ao Arch Diam (Prox Trans): 3.2 cm LVPWd: 0.88 cm LV jennings. diameter/BSA (cm/m^2): 2.5 LV sys. diameter/BSA (cm/m^2): 1.4 LA A2 area: 28.4 cm2 RA long axis: 4.1 cm LA A4 area: 24.7 cm2 RA area: 15.3 cm2 LA length (vol): 6.2 cm RA vol: 48.4 ml LA vol: 96.0 ml RA : 25.6 ml/m2 LA vol index: 50.8 ml/m2 TAPSE: 2.4 cm Doppler Measurements & Calculations Ao V2 max: 168.6 cm/sec LVOT Max Yasmani: 92.6 cm/sec Ao V2 mean: 127.3 cm/sec LV V1 max P.4 mmHg Ao max P.4 mmHg LV V1 VTI: 21.0 cm Ao mean P.0 mmHg FABIENNE(I,D): 1.9 cm2 Ao V2 VTI: 38.6 cm FABIENNE(V,D): 1.9 cm2 sev ratio: 0.55 FABIENNE indexed to BSA (cm^2/m^2): 1.0 MV E max yasmani: 79.5 cm/sec TR max yasmani: 234.5 cm/sec MV A max yasmani: 111.2 cm/sec TR max P.0 mmHg MV E/A: 0.71 PA V2 max: 67.4 cm/sec Med Peak E' Yasmani: 5.7 cm/sec PA V2 mean: 45.4 cm/sec E/E' med: 14.0 PA mean P.92 mmHg Lat Peak E' Yasmani: 6.5 cm/sec PA Accel Time: 0.07 sec E/E' lat: 12.2 E/e' average: 13.1 MV dec time: 0.34 sec MVA(VTI): 2.1 cm2 MV V2 mean: 58.2 cm/sec SV(LVOT): 74.2 ml MV mean P.5 mmHg MV V2 VTI: 35.2 cm Reading Physician:03:06 PM
== END ==
PROVIDERS: PCP Physician Assistant; Visit Provider Physician Assistant
DX: I08.2 Rheumatic disorders of both aortic and tricuspid valves (principal); I77.89 Other specified disorders of arteries and arterioles; R01.1 Cardiac murmur, unspecified; R51 Headache; H53.9 Unspecified visual disturbance
CPT/HCPCS: 93306

== ENCOUNTER 2019-07-08 09:09 | Emergency (ER) | payer MEDICARE, OTHER, SELFPAY ==
[2019-07-08] VITALS (7 sets, daily range): BP systolic 109–125; BP diastolic 48–59; PULSE 53–70; RESP 12–21; TEMP 36.6; O2SAT 96–99; BMI 27.4
--- NOTE | 2019-07-08 09:14 | DI.RAD.S_ITS ---
PROCEDURE: XR CHEST 1V INDICATIONS: syncope TECHNIQUE: One view of the chest was acquired. COMPARISON: [facility], , CHEST 2 VIEW, 01/17/2016, 11:21. FINDINGS: Surgical changes and devices: None. Lungs and pleura: Lungs are clear. No pleural effusions or pneumothorax. Elevation of right hemidiaphragm again noted. Mediastinum: Mediastinal contours appear normal. Mild cardiomegaly Bones and chest wall: No suspicious bony lesions. Overlying soft tissues appear unremarkable. IMPRESSION: Mild cardiomegaly. No evidence acute pulmonary process. Dictated by: Steven Horner M.D. on 07/08/2019 at 9:52 Approved by: Steven Horner M.D. on 07/08/2019 at 10:08
--- NOTE | 2019-07-08 09:14 | DI.CT.S_ITS ---
PROCEDURE: CT HEAD/BRAIN WO CON INDICATIONS: stroke like symptoms TECHNIQUE: Noncontrast 4.5 mm thick angled axial sections acquired from the foramen magnum to the vertex, with coronal and sagittal reformats. For radiation dose reduction, the following was used: automated exposure control, adjustment of mA and/or kV according to patient size. COMPARISON: [facility], CT, CT HEAD/BRAIN WO CON, 06/01/2018, 10:23. FINDINGS: Image quality: Excellent. CSF spaces: Basal cisterns are patent. No extra-axial fluid collections. The ventricles are symmetric in size and shape. Brain: No intracranial bleeds or masses. There is cerebral volume loss for age, with resultant ventricular and sulcal prominence. There are periventricular and mild deep white matter chronic small vessel ischemic changes. There is asymmetric atrophy of the temporal tips, right greater than left. This is unchanged. There is intracranial internal carotid artery atherosclerosis. Skull and face: Calvarium and visualized facial bones appear intact, without suspicious lesions. Extensive arachnoid granulations within the posterior fossa, unchanged dating back to 2008. Sinuses: Visualized sinuses and mastoids are clear. IMPRESSION: 1. Age related volume loss and mild small vessel ischemic change. 2. Asymmetric atrophy of the temporal tips, right greater than left. 3. No evidence acute stroke, hemorrhage, or mass. 4. Findings are stable. Dictated by: Steven Horner M.D. on 07/08/2019 at 9:49 Approved by: Steven Horner M.D. on 07/08/2019 at 9:52
--- NOTE | 2019-07-08 09:36 | ED_ITS ---
HPI - Syncope General Chief Complaint: Syncope Stated Complaint: Dizziness, near syncope Time Seen by Provider: 07/08/19 09:12 Source: patient and EMS Mode of arrival: EMS Limitations: no limitations History of Present Illness HPI narrative: 84-year-old female former smoker with history of GERD and hypothyroid and the recent diagnosis of a dilated left atrium on and May. She has been well until this morning. She woke up feeling a bit under the weather and lightheaded than then went to the bathroom. Soon thereafter she developed some heaviness in her extremities along with some tingling and by the time she made it to the bathroom door she felt lightheaded, called for her family and then had a syncopal episode. She denies any injury as a consequence. EMS was activated. She complains of ongoing funny feeling that she can't quite put a finger on. She has persistent numbness, tingling and heaviness in her extremities MD complaint: loss of consciousness Onset (ago): minute(s) Prodromal symptoms: lightheaded Witnessed: no Context: after urination Injuries sustained associated with event: none Current symptoms: weakness Treatments prior to arrival: none Related Data Home Medications Medication Instructions Recorded Confirmed acetaminophen 650 mg PO PRN PRN #0 02/26/13 07/08/19 calcium carbonate-vitamin D3 600 1 tab PO DAILY 09/17/18 07/08/19 mg (1,500 mg)-800 unit tablet multivitamin 1 tab PO DAILY 09/17/18 07/08/19 usiicdjwpci-jct-uphmksuvu-hrb 1 tab PO DAILY tab 10/22/18 07/08/19 149-hyalur 500 mg-500 mg-66.7 mg tablet Vitamin D3 1 cap PO DAILY 07/08/19 07/08/19 lutein 20 mg PO DAILY 07/08/19 07/08/19 omeprazole 20 mg PO DAILY 07/08/19 07/08/19 vitamin B complex 1 tab PO DAILY 07/08/19 07/08/19 Previous Rx's Medication Instructions Recorded Synthroid 75 mcg tablet 75 mcg PO QAM #90 tab NS 07/22/18 varicella-zoster gE-AS01B (PF) 50 50 mcg IM ONCE #1 each 09/17/18 mcg/0.5 mL IM susp, kit citalopram 10 mg tablet 10 mg PO DAILY #90 tab 07/08/19 Allergies Allergy/AdvReac Type Severity Reaction Status Date / Time zoledronic acid Allergy Unknown Patient Verified 07/08/19 09:09 does not remember [place] Allergy Intermediate Canker Uncoded 07/08/19 09:09 sores Hay fever Allergy Mild Uncoded 07/08/19 09:09 Review of Systems Constitutional Constitutional: Denies chills, Denies fatigue, Denies fever(s), Denies frequent falls, Denies lethargy and Reports weakness Eyes Eyes: Denies change in vision, Denies eye discharge, Denies irritation and Denies loss of vision ENT Ears, Nose, Mouth, and Throat: Denies change in voice, Denies dizziness, Denies neck pain, Denies sore throat and Denies throat swelling Cardiovascular Cardiovascular: Denies chest pain, Denies irregular heart rhythm, Reports lightheadedness, Denies palpitations, Denies dyspnea, Denies dyspnea on exertion and Denies orthopnea Respiratory Respiratory: Denies cough, Denies dyspnea, Denies dyspnea on exertion and Denies wheezing Gastrointestinal Gastrointestinal: Denies abdominal pain, Denies change in bowel habits, Denies diarrhea, Denies nausea and Denies vomiting Genitourinary Genitourinary: Denies hematuria, Denies flank pain, Denies urinary incontinence and Denies urinary urgency Musculoskeletal Musculoskeletal: Denies back pain, Denies muscle weakness, Denies neck pain, Reports numbness and Reports tingling Integumentary/Breasts Skin/Breast: Denies pruritus, Denies erythema, Denies rash and Denies wounds Neurologic Neurologic: Denies behavioral changes, Denies confusion, Denies dizziness, Denies frequent falls, Denies loss of vision, Reports numbness, Reports tingling and Reports weakness Psychiatric Psychiatric: Denies anxiety, Denies behavioral changes, Denies confusion, Denies depression, Denies homicidal ideation and Denies suicidal ideation Endocrine Endocrine: Denies fatigue, Denies flushing and Denies palpitations Hematologic/Lymphatic Hematologic/Lymphatic: Denies easy bruising Allergic/Immunologic Allergic/Immunologic: Denies urticaria, Denies throat swelling and Denies wheezing Patient History Medical History Anxiety (Chronic) Breast cancer (Resolved 08/1995) Depression (Chronic) Hypothyroidism (Chronic) Intertrochanteric fracture of right hip (Resolved 10/18/13) Osteoporosis (Chronic) Wrist fracture (Resolved 06/01/18) Surgical History History of arthroscopy of right knee (Resolved 07/06/10) History of bunionectomy of right great toe (Resolved ~1981) History of colonoscopy (Resolved 2004) History of colonoscopy with polypectomy (Resolved 2009) History of colonoscopy with polypectomy (Resolved 11/09/15) History of excision of mass (Resolved 1966) History of gynecologic surgery (Resolved 01/2002) History of left breast biopsy (Resolved 09/23/08) History of toe surgery (Resolved 11/14/15) History of tonsillectomy (Resolved 1938) S/P total abdominal hysterectomy and bilateral salpingo-oophorectomy (Resolved ~1969) Status post breast lumpectomy (Resolved 01/1999) Status post delivery (Resolved 1967) Status post hernia repair (Resolved 02/2004) Status post hip surgery (Resolved 10/18/13) Family History Brother Throat cancer Mouth cancer Cancer Brother Cancer Brother Throat cancer Pneumonia Cancer Father Heart disease Mother Cancer Colon cancer Sister Cancer Colon cancer Grandfather Pneumonia Grandmother Cancer Social History marital status: household members: spouse lives independently: Yes housing: house Smoking Status: Former smoker Tobacco: How many years used: 10 second hand exposure: No alcohol intake: current (a glass of wine every day if it is a good week. ) substance use type: does not use alcohol intake frequency: 0-2 drinks per day Substance Use Type: does not use Exam Narrative Exam Narrative: GENERAL: [84] year old patient appears stated age. Well- nourished, well-developed patient, in mild distress. HEAD: Atraumatic. Normocephalic. EYES: Pupils equal round and reactive. Extraocular motions intact. No scleral ic terus. No injection or drainage. ENT: Nose without bleeding, purulent drainage. Throat without erythema, tonsillar hypertrophy or exudate. Airway patent. NECK: Trachea midline. Non tender CARDIOVASCULAR: Regular rate and rhythm without murmurs, gallops, or rubs. RESPIRATORY: Clear to auscultation. Breath sounds equal bilaterally. No wheezes, rales, or rhonchi. GASTROINTESTINAL: Abdomen soft, non-tender, nondistended. EXTREMITIES: No edema or joint tenderness. BACK: Nontender without deformity or crepitance. No flank tenderness. NEURO: AOx3. SKIN: No rash or erythema of visible areas Initial Vital Signs Initial Vital Signs: Vital Signs Temperature 97.8 F 07/08/19 09:09 Pulse Rate 53 L 07/08/19 09:09 Respiratory Rate 16 07/08/19 09:09 Blood Pressure 118/53 L 07/08/19 09:09 Pulse Oximetry 97 07/08/19 09:09 Course Orders Ordered: ED Orders 07/08/19 12:10 Urine Microscopic Stat 07/08/19 12:46 CT angio chest PE protocol Stat Discontinued Medications Sodium Chloride (Normal Saline 0.9%) 500 mls @ 1,000 mls/hr IV BOLUS ONE Stop: 07/08/19 09:43 Last Infusion: 07/08/19 11:22 Dose: 0 mls/hr Documented by: Admin: 07/08/19 10:06 Dose: 1,000 mls/hr Documented by: SCANAPO Vital Signs Vital signs: Vital Signs - 8 hr 07/08/19 11:30 07/08/19 12:30 07/08/19 13:30 Pulse Rate 69 64 68 Respiratory Rate 12 12 21 Blood Pressure [Left Arm] 121/59 L 120/52 L 109/48 L Pulse Oximetry 98 99 96 07/08/19 14:00 Pulse Rate 70 Respiratory Rate 20 Blood Pressure [Left Arm] 125/52 L Pulse Oximetry 98 MDM - Syncope Lab Data Result diagrams: 07/08/19 09:35 07/08/19 09:35 Labs: Lab Results 07/08/19 07/08/19 07/08/19 Range/Units 09:35 09:35 12:10 WBC 7.7 (4.5-11.0) X10^3/uL RBC 4.70 (4.0-5.2) X10^6/uL Hgb 14.6 (12.0-16.0) g/dL Hct 43.3 (36-46) % MCV 91.9 (80-100) fL MCH 31.1 (26-34) PG MCHC 33.8 (30-36) % RDW 13.6 (11.6-14.8) % Plt Count 182 (150-400) X10^3/uL Neut % (Auto) 85.5 H (50-75) % Lymph % (Auto) 9.4 L (25-40) % Harris % (Auto) 4.5 (3-14) % Eos % (Auto) 0.3 L (2-4) % Baso % (Auto) 0.3 (0-2) % Neut # (Auto) 6500 (8655-9493) /uL Lymph # (Auto) 700 L (5439-1697) /uL Harris # (Auto) 300 (0-900) /uL Eos # (Auto) 0 (0-450) /uL Baso # (Auto) 0 (0-100) /uL Sodium 140 (137-145) mmol/L Potassium 3.9 (3.4-5.1) mmol/L Chloride 101 (98-107) mmol/L Carbon Dioxide 30 (22-32) mmol/L BUN 20 H (7-17) mg/dL Creatinine 0.70 (0.52-1.04) mg/dL Estimated GFR > 60.0 (>60) mL/min BUN/Creatinine Ratio 28.6 H (6-22) Glucose 106 (80-110) mg/dL Calcium 9.8 (8.4-10.2) mg/dL Magnesium 1.9 (1.6-2.3) mg/dL Total Creatine Kinase 25 L (30-135) U/L CK-MB (CK-2) TNP CK-MB (CK-2) Rel Index TNP Troponin I < 0.012 (0.01-0.034) ng/mL B-Natriuretic Peptide < 100 (<100) Prolactin 32.6 H (3.0-18.6) ng/mL Urine RBC 0-1/hpf (0-5/HPF) Urine WBC 1-5/hpf (0-5/HPF) Ur Squamous Epith Cells 1-5 /hpf (0-5/HPF) Urine Bacteria None seen (None) Ur Culture Indicated? Cult not indicated Urine Dip Bedside Urine Glucose Negative Bedside Urine Bilirubin - Negative Bedside Urine Ketone - Negative Urine Specific [place] 1.015 Bedside Urine Occult Blood +/- Bedside Urine pH 6.0 Bedside Urine Protein - Negative Bedside Urine Urobilinogen - Negative Bedside Urine Nitrite - Negative Bedside Urine Leukocytes +/- 15 Esterase Imaging Data Chest x-ray: Radiologist's impression: [address] [id number] XRay Report Signed Patient: Delia Meyers PMR#: [id number] : 4Acct:[id number] Age/Sex: 84 / FDate of Service: 07/08/19 Loc: ED Accession Number: [id number] Procedure: XR chest 1V Ordering Provider: Boogie Barclay D.O. PROCEDURE: XR CHEST 1V INDICATIONS: syncope TECHNIQUE: One view of the chest was acquired. COMPARISON: [facility], CR, CHEST 2 VIEW, 01/17/2016, 11:21. FINDINGS: Surgical changes and devices: None. Lungs and pleura: Lungs are clear. No pleural effusions or pneumothorax. Elevation of right hemidiaphragm again noted. Mediastinum: Mediastinal contours appear normal. Mild cardiomegaly Bones and chest wall: No suspicious bony lesions. Overlying soft tissues appear unremarkable. IMPRESSION: Mild cardiomegaly. No evidence acute pulmonary process. Dictated by: Steven Horner M.D. on 07/08/2019 at 9:52 Approved by: Steven Horner M.D. on 07/08/2019 at 10:08 CT scan - head: Radiologist's impression: [address] [address] [address] Scan Report Signed Patient: Delia Meyers PMR#: [id number] : 4At:[id number] Age/Sex: 84 / FDate of Service: 07/08/19 Loc: ED Accession Number: [id number] Procedure: CT head/brain wo con Ordering Provider: Boogie Barclay D.O. PROCEDURE: CT HEAD/BRAIN WO CON INDICATIONS: stroke like symptoms TECHNIQUE: Noncontrast 4.5 mm thick angled axial sections acquired from the foramen magnum to the vertex, with coronal and sagittal reformats. For radiation dose reduction, the following was used: automated exposure control, adjustment of mA and/or kV according to patient size. COMPARISON: [facility], CT, CT HEAD/BRAIN WO CON, 06/01/2018, 10:23. FINDINGS: Image quality: Excellent. CSF spaces: Basal cisterns are patent. No extra-axial fluid collections. The ventricles are symmetric in size and shape. Brain: No intracranial bleeds or masses. There is cerebral volume loss for age, with resultant ventricular and sulcal prominence. There are periventricular and mild deep white matter chronic small vessel ischemic changes. There is asymmetric atrophy of the temporal tips, right greater than left. This is unchanged. There is intracranial internal carotid artery atherosclerosis. Skull and face: Calvarium and visualized facial bones appear intact, without suspicious lesions. Extensive arachnoid granulations within the posterior fossa, unchanged dating back to 2008. Sinuses: Visualized sinuses and mastoids are clear. IMPRESSION: 1. Age related volume loss and mild small vessel ischemic change. 2. Asymmetric atrophy of the temporal tips, right greater than left. 3. No evidence acute stroke, hemorrhage, or mass. 4. Findings are stable. Dictated by: Steven Horner M.D. on 07/08/2019 at 9:49 Approved by: Steven Horner M.D. on 07/08/2019 at 9:52 ECG Data Attestation: I personally reviewed and interpreted this ECG as follows: Prior ECG tracings: available for review Interpretation: EKG is normal sinus rhythm rate [ 60] and free of any signs of ischemia or ectopy. No ST segmental elevation or depression. No T wave inversions MDM Narrative Medical decision making narrative: 84-year-old female with syncope after using the toilet and standing up. She has been at her baseline and felt well since her arrival. Labs are unremarkable, no EKG changes, physical exam very reassuring. She does fine with orthostatics and is ambulatory in the department. I have contacted her primary care provider who was happy to see her in short order as an outpatient and will get her set up with cardiac monitoring and a stress test per Cardiology request Discharge Plan Departure Patient Disposition: Home Clinical Impression: Syncope Qualifiers: Syncope type: unspecified Qualified Code(s): R55 - Syncope and collapse Discharge Date/Time: 07/08/19 14:21 Instructions: DI for Syncope in Adults (Fainting) Activity Restrictions/Additional Instructions: *You have been diagnosed with [syncopal episode] *What to do: *Take medications as directed *Follow up with your primary care provider in 2-3 days, call for an appoin tment. Let them know you were seen in the Emergency Department and that we ask that you be seen in follow up *Return to ER if you should have any new, worsening or concerning symptoms Prescriptions: No Action multivitamin tablet 1 tab PO DAILY RF: 0 calcium carbonate-vitamin D3 [Caltrate with Vitamin D3] 600 mg(1,500mg) -800 unit tablet 1 tab PO DAILY RF: 0 varicella-zoster gE-AS01B (PF) [Shingrix (PF)] 50 mcg/0.5 mL suspension for reconstitution 50 mcg IM ONCE Qty: 1 RF: 1 uouhtaad-mcp-htepu-kwa940-qkis [Cioxaq-Uqtvt-ATV (with antiox)] 500-500-66.7 mg tablet 1 tab PO DAILY RF: 0 levothyroxine [Synthroid] 75 mcg tablet 75 mcg PO QAM Qty: 90 RF: 3 acetaminophen 650 mg Tablet Extended Release 650 mg PO PRN PRN (Reason: pain) Qty: 0 RF: 0 citalopram 10 mg tablet 10 mg PO DAILY Qty: 90 RF: 1 omeprazole 20 mg capsule,delayed release(DR/EC) 20 mg PO DAILY RF: 0 vitamin B complex Tablet 1 tab PO DAILY RF: 0 lutein 20 mg Tablet 20 mg PO DAILY RF: 0 Vitamin D3 1 cap PO DAILY RF: 0 Referrals: Geni Ace PA-C [Primary Care Provider] -
[2019-07-08 09:49] LABS: Add Manual Diff / Slide Review NO; Basophils Absolute Auto 0 /uL (0-100); Basophils Percent Auto 0.3 % (0-2); Eosinophils Absolute Auto 0 /uL (0-450); Eosinophils Percent Auto 0.3 % (2-4); Hematocrit 43.3 % (36-46); Hemoglobin 14.6 g/dL (12.0-16.0); Lymphocytes Absolute Auto 700 /uL (1100-4500); Lymphocytes Percent Auto 9.4 % (25-40); Mean Corpuscular HGB Conc 33.8 % (30-36); Mean Corpuscular Hemoglobin 31.1 PG (26-34); Mean Corpuscular Volume 91.9 fL (80-100); Monocytes Absolute Auto 300 /uL (0-900); Monocytes Percent Auto 4.5 % (3-14); Neutrophils Absolute Auto 6500 /uL (1500-7000); Neutrophils Percent Auto 85.5 % (50-75); Platelet Count 182 X10^3/uL (150-400); Red Cell Distribution Width 13.6 % (11.6-14.8); White Blood Cell Count 7.7 X10^3/uL (4.5-11.0)
[2019-07-08 09:55] LABS: BUN Creatinine Ratio 28.6 (6-22); Blood Urea Nitrogen 20 mg/dL (7-17); Calcium 9.8 mg/dL (8.4-10.2); Carbon Dioxide 30 mmol/L (22-32); Chloride 101 mmol/L (98-107); Creatine Kinase 25 U/L (30-135); Estimated Glomerular Filt Rate > 60.0 mL/min (>60); Glucose 106 mg/dL (80-110); HEMOLYSIS 20 (0-50); Magnesium 1.9 mg/dL (1.6-2.3); Potassium 3.9 mmol/L (3.4-5.1); Sodium 140 mmol/L (137-145)
[2019-07-08 10:04] LABS: B Type Natriuretic Peptide < 100 (<100)
[2019-07-08] MEDS: SODIUM CHLORIDE 0.9% 500 ML 1000 ML IV (10:06)
[2019-07-08 10:07] LABS: Troponin I < 0.012 ng/mL (0.01-0.034)
[2019-07-08 10:12] LABS: Prolactin 32.6 ng/mL (3.0-18.6)
--- NOTE | 2019-07-08 11:09 | PC.NURSE ---
pt monitor alarming, pt o2 sats 86, asked pt to take deep breath, o2 up to 88% pt placed on 2l nc o2, sats now 97%
--- NOTE | 2019-07-08 12:46 | DI.CT.S_ITS ---
PROCEDURE: CT ANGIO CHEST PE PROTOCOL INDICATIONS: hypoxia, syncope TECHNIQUE: After the administration of intravenous contrast, 2 mm thick sections acquired from the pulmonary apices to the posterior costophrenic angles. 3-dimensional maximum intensity projection (MIP) coronal and sagittal reformats were then acquired through the thorax. For radiation dose reduction, the following was used: automated exposure control, adjustment of mA and/or kV according to patient size. COMPARISON: None. FINDINGS: Image quality: Excellent. Pulmonary arteries: No acute pulmonary embolism identified. The main pulmonary artery is enlarged measuring 3.7 cm in diameter and likely sequela of chronic pulmonary arterial hypertension. No evidence for acute right-sided heart strain. Lungs and pleura: Scattered, patchy areas of ground glass opacities predominantly involving the bilateral upper lobes and dependent portions of the bilateral lower lobes. No focal consolidation. No septal thickening or nodularity. No pleural effusion or pneumothorax. There is mild diffuse airway prominence/thickening of the perihilar region bilaterally. No bronchiectasis. No pulmonary fibrosis/honeycombing. A 5 mm left lower lobe pulmonary nodule is seen on image 144, series 5. Central and peripheral airways are patent. Mediastinum: Heart size is mildly enlarged, without pericardial effusion. Scattered atherosclerotic calcifications of the coronary arteries are noted. There are numerous scattered mediastinal, hilar, and axillary lymph nodes which are more notable for number rather than size and are likely reactive in etiology. No meet size criteria for pathology. Thoracic aorta is normal in caliber and enhancement. Esophagus is normal in caliber, without hiatal hernia. Bones and chest wall: No suspicious bony lesions. Ribs and thoracic spine appear intact throughout. Thyroid gland demonstrates a thick rimmed calcified nodule in the left lower lobe. No axillary or supraclavicular adenopathy by size criteria. Abdomen: Visualized upper abdominal solid organs appear normal in the early arterial phase of enhancement. Scattered calcifications in the liver and spleen consistent with prior granulomatous disease. IMPRESSION: 1. No acute pulmonary embolism identified. 2. Enlarged main pulmonary artery without evidence for acute right-sided heart strain. Findings likely represent sequela of chronic pulmonary arterial hypertension. 3. Diffuse, patchy areas of groundglass opacities identified in the bilateral hemithoraces predominantly involving the bilateral upper lobes and dependent portions of the lower lobes. No associated consolidation, pleural effusion, or septal thickening/nodularity. Findings may represent sequela of inflammatory/infectious process although early edema not excluded given presence of mild cardiomegaly. 4. Numerous scattered mediastinal, hilar, and axillary lymph nodes which are more notable for number rather than size and likely representing reactive lymph nodes. 5. Other chronic findings as above. Dictated by: Ruben Elizondo M.D. on 07/08/2019 at 12:58 Approved by: Ruben Elizondo M.D. on 07/08/2019 at 13:13
[2019-07-08 13:00] LABS: Bacteria Urine None Seen
[2019-07-08 13:27] LABS: Culture Indicated Urine Cult Not Indicated; RBC Urine 0-1/HPF (0-5/HPF); Squamous Epithelial Cell Urine 1-5 /HPF (0-5/HPF); WBC Urine 1-5/HPF (0-5/HPF)
== END 2019-07-08 14:21 | disposition home or self-care (01) ==
PROVIDERS: Emergency Provider Emergency Medicine; PCP Physician Assistant
DX: R55 Syncope and collapse (principal); R07.9 Chest pain, unspecified; R29.818 Other symptoms and signs involving the nervous system
CPT/HCPCS: 36415; 70450; 71045; 71275; 80048; 81003; 81015; 82550; 83735; 83880; 84146; 84484; 85025; 93005; 93041; 99284; 99285; Q9967

== ENCOUNTER → 2019-07-15 11:16 | Outpatient (CLI) | payer MEDICARE, OTHER, SELFPAY ==
--- NOTE | 2019-07-15 11:18 | DI.NM.S_ITS ---
PROCEDURE: NM CIELO PERF SPECT REST & STR Rest and exercise myocardial perfusion SPECT with gated imaging and ejection fraction RADIOPHARMACEUTICAL: 25.7 mCi Tc-99m sestamibi IV at rest and 25.8 mCi Tc-99m sestamibi IV at peak exercise. A two day-protocol was performed. INDICATIONS: Syncopal episode; left ventricular dilation TECHNIQUE: Radiopharmaceutical was injected at peak stress test, and also at rest. SPECT images were obtained. SPECT myocardial perfusion images were displayed in short axis, horizontal long axis, and vertical long axis views. Gated images were reviewed using Quick[employer] software. COMPARISON: None. CARDIAC STRESS: A standard Johny treadmill exercise tolerance test was performed by the patient under the supervision of an attending staff. The patient exercised for 4 minutes and 4 seconds reachign 7.0 METs; functional aerobic impairment (SEBASTIAN) is +5%. Hemodynamic data: There is normal blood pressure and heart rate response to exercise stress. Patient achieved target heart rate at peak exercise. Symptoms: Patient denied chest pain during exercise. EKG: No diagnostic EKG changes of ischemia; no ectopy. FINDINGS: Raw data: There is good myocardial labeling by radiotracer. No significant motion artifacts. Left ventricle function: Gated images demonstrate normal left ventricle wall thickening. No segmental wall motion abnormality. No transient ischemic dilation; TID is 0.86 (normal less than 1.3). The left ventricle resting end-diastolic volume is 83 mL. Left ventricle stress ejection fraction is 84%; normal values are above 45%. Myocardial perfusion: There is normal distribution of activity in the left and right ventricular myocardium. No fixed or reversible perfusion defects. IMPRESSION: Low risk, normal treadmill nuclear stress test 1) No perfusion evidence of ischemia or infarction. 2) Normal left ventricular size, wall motion, and systolic function (EF post stress 84%). 3) No ECG evidence of ischemia. 4) No angina during the study. 5) No prior nuclear stress test available for comparison. Dictated by: Noel Farah MD on 07/17/2019 at 15:18 Approved by: Noel Farah MD on 07/17/2019 at 15:21
--- NOTE | 2019-07-15 11:54 | P.PCN_ITS ---
Cardiac Stress Test Report Referral & Results Date Patient Seen: 07/15/19 Time Patient Seen: 11:45 Requesting provider: Geni Ace Indication: Syncope Rest ECG: NSR Procedure Note: Today following both written and verbal informed consent the patient was exercised according to a standard Johny protocol patient went for a total of 4 minutes 4 seconds achieving a maximum heart rate of 152 maximum systolic blood pressure of 170. This is approximately 7 METs. Exercise was terminated at this point because of fatigue, leg pain. Patient was also given Cardiolite through a previously started Hep-Lock IV by the nuclear plant construction worker approximately 1 minute prior to the cessation of exercise. No signs or symptoms of angina during exercise. Overwhelming artifact main EKG interpretation difficult. Occasional PVCs observed at rest. Impression: Intermediate probability for ischemia. Will await perfusion imaging. Please note: Actual ECG tracings can be found in the PACS system.
== END ==
PROVIDERS: PCP Physician Assistant; Visit Provider Physician Assistant
DX: R55 Syncope and collapse (principal); I51.7 Cardiomegaly
CPT/HCPCS: 78452; 93016; 93017; 93018; A9502

== ENCOUNTER → 2019-07-22 10:56 | Outpatient (CLI) | payer MEDICARE, OTHER, SELFPAY ==
--- NOTE | 2019-08-07 15:55 | P.HOLT.S_ITS ---
Mechanical Systems Design Engineer Report Referral & Results Date Patient Seen: 07/22/19 Requesting provider: Geni Ace Indication: Syncope Duration of monitoring (days): 7 Diary information: There were 3 patient triggered events and 6 diary entries These events were associated with sinus rhythm, PACs, and PVCs Data: Minimum heart rate identified is 52 beats per minute at 08:44 on 07/24/2019 Maximum sinus heart rate was 125 beats per minute at 13:34 on 07/25/2019 Maximum overall heart rate was 222 beats per minute at 11:37 on 07/25/2019 during a 4 beat run of ventricular tachycardia Less than 1% of identified beats were PACs Approximately 1.6% of identified beats were PVCs including a 19.2nd run of ventricular trigeminy and a 6.2nd run of ventricular bigeminy Patient 26 supraventricular tachycardic/atrial tachycardic runs the longest lasting 15 beats Patient with 4 runs of ventricular tachycardia longest was 4 beats looked 4 beats 7 beats at a rate of 139 beats per minute Impression: No clear etiology for syncope identified on this study Occasional ventricular and supraventricular events as above including a 7 beat run of ventricular tachycardia Clinical correlation suggested
== END ==
PROVIDERS: PCP Physician Assistant; Visit Provider Physician Assistant
DX: R55 Syncope and collapse (principal)
CPT/HCPCS: 0296T; 0298T

== ENCOUNTER → 2019-08-18 10:43 | Outpatient (CLI) | payer MEDICARE, OTHER, SELFPAY ==
[2019-08-18 12:50] LABS: Free T3, Triiodothyronine Free 3.11 pg/mL (2.77-5.27); Free T4, Direct Thyroxine 1.15 ng/dL (0.78-2.19)
[2019-08-18 13:04] LABS: Thyroid Stimulating Hormone 2.41 uIU/mL (0.47-4.68)
== END ==
PROVIDERS: PCP Physician Assistant; Visit Provider Physician Assistant
DX: E03.9 Hypothyroidism, unspecified (principal); R63.5 Abnormal weight gain
CPT/HCPCS: 36415; 84439; 84443; 84481

== ENCOUNTER 2020-02-25 14:30 | Outpatient (RCR) | payer MEDICARE, OTHER, SELFPAY ==
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
--- NOTE | 2020-02-18 13:24 | PT.OPPOC ---
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 Plan Of Care PT-OP-T Assessment and Plan Start: 02/18/20 09:54 Freq: Status: Active Protocol: Document 02/18/20 09:51 MB (Rec: 02/18/20 13:22 MB [id number]) Physical Therapy Assessment Rehab Potential Rehabilitation Potential Good Evaluation Complexity Number of Personal Factors/Comorbidities 0 Number of Body Systems Impaired 1-2 Clinical Presentation at Evaluation Evolving Impairments Impairments Balance,Functional Activities, Functional Mobility,Gait,Pain, Posture,ROM,Soft Tissue Mobility,Vestibular Other Concerns Fall Risk Yes Age Related Concerns Advanced age Goals 3 Director Design Goal (LTG) Pt will perform WNLs on a standardized balance test to decrease fall risk by 04/19/2020 . LTG Duration 8 weeks 2 Director Design Goal (LTG) Pt will perform progressive HEP including balance, VOR, postural, cervical range of motion and flexibility exercises with I to improve mobility by 04/19/2020. LTG Duration 8 weeks 1 Director Design Goal (LTG) Pt will present with an improved DHI score to reflect no more than low perception of handicap to decrease fall risk by 04/19/2020. LTG Duration 8 weeks Assessment Summary Assessment Pt is an 84 y/o female presenting with at least 7 year history of intermittent vertigo that presents like BPPV. She presents with postural changes, increased neck tension, poor balance requiring use of cane and vertiginous symptoms with BPPV testing today. Pt does not have noticeable nystagmus with any position of BPPV testing. Her symptoms are replicated with right [place]-Hallpike and so treated today and she reports feeling better after treatment. Will con't to monitor. Orthostasis testing is negative with BP & HR in left UE: supine 115/58, 62; standing 117/65, 87; standing 30 sec 123/65, 73. Pt will benefit from ongoing PT to make sure she is clear of BPPV , to improve cervical ROM and VOR and balance training. Multiple vestibular tests, range and strength tests deferred this date d/t triaging pt needs including checking orthostatics and assessing and treating BPPV in treatment time constraints. Barriers to PT are advanced age, postural changes leading to less head movement and VOR stimulation, history of multiple falls. Physical Therapy Plan Frequency and Duration Frequency of Treatment 2x/Week Duration of Treatment 6 weeks Plan of Care Start Date 02/18/20 Plan of Care End Date 04/04/20 Therapeutic Interventions Therapeutic Interventions Balance Training,Canalithic Repositioning,Gait Training, Home Exercise Program,Manual Therapy,Neuromuscular Re- education,Patient/Caregiver Education,Self-Care/Home Management,Soft Tissue Mobilization,Taping, Therapeutic Exercises, Vestibular Rehabilitation Modalities Cold Pack/Ice Massage,Electric Stimulation,Hot Packs, Ultrasound Next Visit Focus/Plan Next Note Type Treatment Note Next Visit Plan Reassess BPPV, progress flexibility exercises cervical spine, self STM with racquet ball and/or VOR testing and exercise Plan of Care Dates Plan of Care Start Date 02/18/20 Plan of Care End Date 04/04/20 Electronically Signed by: Maye Clemens, PT 02/18/20 1320 Please Sign and Return: I have reviewed this Plan of Care and certify that the skilled therapy services above are required to meet the patient?s needs. Physician Signature Date Printed Name and Credentials Clinical Instructor Signature Printed Name and Credentials
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
== END 2020-02-25 17:00 ==
LOC: PHYS 14:30
PROVIDERS: PCP Nurse Practitioner Family; Referring Provider Nurse Practitioner Family; Visit Provider Nurse Practitioner Family
DX: H83.2X9 Labyrinthine dysfunction, unspecified ear (principal)
CPT/HCPCS: 95992; 97140; 97162; 97535

== ENCOUNTER → 2020-08-01 08:41 | Outpatient (CLI) | payer MEDICARE, OTHER, SELFPAY ==
[2020-08-01 09:22] LABS: Hematocrit 41.2 % (36-46); Hemoglobin 13.6 g/dL (12.0-16.0); Mean Corpuscular HGB Conc 32.9 % (30-36); Mean Corpuscular Hemoglobin 30.6 PG (26-34); Platelet Count 183 X10^3/uL (150-400); Red Blood Cell Count 4.43 X10^6/uL (4.0-5.2); Red Cell Distribution Width 13.6 % (11.6-14.8)
[2020-08-01 09:50] LABS: Alanine Aminotransferase 9 IU/L (<35); Albumin 4.3 g/dL (3.5-5.0); Albumin Globulin Ratio 1.4 (1.0-2.8); Alkaline Phosphatase 68 U/L (38-126); Aspartate Aminotransferase 18 IU/L (14-36); BUN Creatinine Ratio 22.5 (6-22); Bilirubin Total 0.6 mg/dL (0.2-1.3); Blood Urea Nitrogen 16 mg/dL (7-17); Calcium 9.4 mg/dL (8.4-10.2); Carbon Dioxide 33 mmol/L (22-32); Chloride 104 mmol/L (98-107); Cholesterol 225 mg/dL (140-199); Estimated Glomerular Filt Rate > 60.0 mL/min (>60); Globulin 3.1 g/dL (1.7-4.1); Glucose 91 mg/dL (80-110); HDL Cholesterol 57 mg/dL (40-60); HEMOLYSIS < 15 (0-50); LDL Cholesterol Calculated 138 mg/dL (<100); Potassium 3.9 mmol/L (3.4-5.1); Sodium 140 mmol/L (137-145); Total Protein 7.4 g/dL (6.3-8.2); Triglycerides 152 mg/dL (35-150)
[2020-08-01 11:34] LABS: Vitamin D 25 Hydroxy (D3) 37.3 ng/mL (30.0-100.0)
== END ==
PROVIDERS: PCP Nurse Practitioner Family; Referring Provider Nurse Practitioner Family; Visit Provider Nurse Practitioner Family
DX: Z00.00 Encounter for general adult medical examination without abnormal findings (principal); E78.00 Pure hypercholesterolemia, unspecified; E55.9 Vitamin D deficiency, unspecified; E03.9 Hypothyroidism, unspecified
CPT/HCPCS: 80053; 80061; 82306; 84443; 85027

== ENCOUNTER → 2020-08-05 16:01 | Outpatient (CLI) | payer MEDICARE, OTHER, SELFPAY ==
--- NOTE | 2020-08-05 16:03 | DI.MG.S_ITS ---
BILATERAL DIGITAL SCREENING MAMMOGRAM 3D/2D WITH CAD: 08/05/2020 CLINICAL: Routine screening. Personal history of right breast cancer. Comparison is made to exams dated: 11/04/2018 mammogram, 06/03/2017 mammogram, 05/24/2016 mammogram, and 05/20/2019 mammogram - [facility]. The tissue of both breasts is heterogeneously dense. This may lower the sensitivity of mammography. Current study was also evaluated with a Computer Aided Detection (CAD) system. There are benign calcifications in both breasts. There also are benign vascular calcifications in the left breast. Additionally, there are benign post operative findings in the right breast. Additionally, there also is a biopsy clip in the left breast. No significant masses, calcifications, or other findings are seen in either breast. There has been no significant interval change. IMPRESSION: BENIGN There is no mammographic evidence of malignancy. A 1 year screening mammogram is recommended. This exam was interpreted at Station ID: [id number]. NOTE: For mammograms, a report in lay terms will be sent to the patient. Approximately 15% of breast malignancies will not be visualized mammographically. In the management of a palpable breast mass, a negative mammogram must not discourage biopsy of a clinically suspicious lesion. Electronically Signed By: Lizeth ott/bernardo:08/05/2020 16:46:04 copy to: Baljinder Worrell letter sent: Normal Exam ACR BI-RADS Category 2: Benign Finding(s) [id number]
== END ==
PROVIDERS: PCP Nurse Practitioner Family; Referring Provider Nurse Practitioner Family; Visit Provider Nurse Practitioner Family
DX: Z12.31 Encounter for screening mammogram for malignant neoplasm of breast (principal); Z80.3 Family history of malignant neoplasm of breast
CPT/HCPCS: 77063; 77067

== ENCOUNTER → 2023-11-12 10:51 | Outpatient (CLI) | payer MEDICARE, OTHER, SELFPAY ==
--- NOTE | 2023-11-12 10:55 | DI.RAD.S_ITS ---
PROCEDURE: XR HIP W PEL IF DONE RT 2V INDICATIONS: chronic right hip, back, thigh pain TECHNIQUE: AP pelvis with lateral view(s) of the right hip(s). COMPARISON: [facility], STEVEN, XR FEMUR RT MIN 2V, 11/12/2023, 10:58. [facility], CR, XR HIP W PEL IF DONE ORIN 3TO4V, 05/31/2022, 10:51. [facility], , HIP 2V RIGHT, 10/18/2013, 11:57. FINDINGS: Bones: Right femur intramedullary anu with screw fixation. Left total hip arthroplasty. No periprosthetic lucency is identified. Prior fracture of the right lesser trochanter. No acute fractures or dislocations. Severe right hip joint space narrowing. Pelvic ring appears intact. No suspicious bony lesions. Soft tissues: The visualized bowel gas pattern is normal. No suspicious soft tissue calcifications. IMPRESSION: Stable appearance of the left hip arthroplasty. Stable appearance of the right femur intramedullary anu with screw fixation. Please see separately dictated same day right knee radiographs. Severe right hip DJD. Prior right lesser trochanter fracture. Dictated by: Quincy Villasenor M.D. on 11/12/2023 at 14:28 Approved by: Quincy Villasenor M.D. on 11/12/2023 at 14:30
--- NOTE | 2023-11-12 10:55 | DI.RAD.S_ITS ---
PROCEDURE: XR KNEE LT 3V INDICATIONS: bilateral knee pain TECHNIQUE: 3 views of the knee were acquired. COMPARISON: [facility], KNEE 3V RIGHT, 04/20/2010, 13:09. [facility], KNEE 1-2 VIEWS RIGHT, 02/19/2008, 15:24. FINDINGS: Bones: No fractures or dislocations. Mild joint space narrowing at the medial compartment. Tiny osteophytes. No suspicious bony lesions. Soft tissues: Small joint effusion. No suspicious soft tissue calcifications. IMPRESSION: Mild left knee DJD. Small joint effusion. Dictated by: Quincy Villasenor M.D. on 11/12/2023 at 14:25 Approved by: Quincy Villasenor M.D. on 11/12/2023 at 14:28
--- NOTE | 2023-11-12 10:55 | DI.RAD.S_ITS ---
PROCEDURE: XR LUMBAR SPINE 2-3V INDICATIONS: chronic right hip, back, thigh pain TECHNIQUE: 3 views of the lumbar spine were acquired. COMPARISON: [facility], CT, CT CHEST ABD PEL W CON, 01/03/2023, 12:43. FINDINGS: Bones: 5 [id number] vertebrae are present. Exaggerated lumbar spine lordosis. Lower lumbar spine facet joint hypertrophy. Grade 1 anterolisthesis of L4 on L5 measuring 0.3 cm, unchanged. No vertebral body compression fractures. No suspicious bony lesions. Soft tissues: Overlying bowel gas pattern is normal. No suspicious soft tissue calcifications. Arterial vascular calcifications. IMPRESSION: No compression fracture. Exaggerated lumbar spine lordosis. Grade 1 anterolisthesis of L4 on L5. Moderate degenerative changes. Dictated by: Quincy Villasenor M.D. on 11/12/2023 at 14:22 Approved by: Quincy Villasenor M.D. on 11/12/2023 at 14:25
--- NOTE | 2023-11-12 10:55 | DI.RAD.S_ITS ---
PROCEDURE: XR FEMUR RT MIN 2V INDICATIONS: chronic right hip, back, thigh pain TECHNIQUE: 2 views of the femur were acquired. COMPARISON: [facility], CR, XR KNEE RT 3V, 11/12/2023, 10:58. [facility], CR, XR HIP W PEL IF DONE RT 2V, 11/12/2023, 10:58. FINDINGS: Bones: Right femur intramedullary anu with screw fixation. No periprosthetic lucency demonstrated. Prior fracture of the lesser trochanter. Cortical thickening at the proximal femur. No acute fractures or dislocations. Right hip joint space narrowing. No suspicious bony lesions. Soft tissues: No suspicious soft tissue calcifications or masses. IMPRESSION: Severe right hip DJD. No hardware fracture demonstrated. Please see separately dictated same day knee radiographs. Dictated by: Quincy Villasenor M.D. on 11/12/2023 at 14:18 Approved by: Quincy Villasenor M.D. on 11/12/2023 at 14:22
--- NOTE | 2023-11-12 10:55 | DI.RAD.S_ITS ---
PROCEDURE: XR KNEE RT 3V INDICATIONS: bilateral knee pain TECHNIQUE: 3 views of the knee were acquired. COMPARISON: [facility], CR, XR KNEE LT 3V, 11/12/2023, 10:58. [facility], CR, XR FEMUR RT MIN 2V, 11/12/2023, 10:58. [facility], CR, KNEE 3V RIGHT, 04/20/2010, 13:09. [facility], CR, KNEE 1-2 VIEWS RIGHT, 02/19/2008, 15:24. FINDINGS: Bones: Femoral stem with screw fixation. Transverse screw appears bent. Screw does not appear fracture. Trace periosteal reaction. No periprosthetic lucency. No fractures or dislocations. No suspicious bony lesions. Severe joint space narrowing at the medial aspect. Tricompartmental osteophytosis. Soft tissues: Trace joint effusion. No suspicious soft tissue calcifications. IMPRESSION: Transverse screw at the distal fibula appears bent. Severe right knee DJD most pronounced at the medial compartment. Dictated by: Quincy Villasenor M.D. on 11/12/2023 at 14:15 Approved by: Quincy Villasenor M.D. on 11/12/2023 at 14:18
== END ==
PROVIDERS: Family Provider Family Medicine; PCP Family Medicine; Referring Provider Family Medicine; Visit Provider Family Medicine
DX: S72.141A Displaced intertrochanteric fracture of right femur, initial encounter for closed fracture (principal); M16.11 Unilateral primary osteoarthritis, right hip; M17.0 Bilateral primary osteoarthritis of knee; M43.16 Spondylolisthesis, lumbar region; M47.816 Spondylosis without myelopathy or radiculopathy, lumbar region; M25.462 Effusion, left knee; M25.561 Pain in right knee; M25.562 Pain in left knee; M54.50 Low back pain, unspecified; M25.559 Pain in unspecified hip; M79.604 Pain in right leg; G89.29 Other chronic pain; Z98.890 Other specified postprocedural states; Z96.642 Presence of left artificial hip joint
CPT/HCPCS: 72100; 73502; 73552; 73562

== ENCOUNTER → 2023-12-21 07:31 | Outpatient (CLI) | payer MEDICARE, OTHER, SELFPAY ==
--- NOTE | 2023-12-21 | DI.MRI.S_ITS ---
PROCEDURE: MR LUMBAR SPINE WO CON INDICATIONS: Spinal stenosis, lumbar region TECHNIQUE: Noncontrast sagittal T1 spin echo and T2 fast echo, sagittal STIR, and T2 fast spin echo through the lumbar spine. In cases with scoliosis, additional coronal T2 fast spin echo may be performed. COMPARISON: [facility], CR, XR LUMBAR SPINE 2-3V, 11/12/2023, 10:58. FINDINGS: Image quality: Excellent. Alignment and Curvature: T 5 mm anterolisthesis L3 on L4. 5 mm anterolisthesis L4 on L5. Trace anterolisthesis L5 on S1. here is normal bony alignment. Bone Marrow: Marrow is of normal overall signal. No acute vertebral body compression fractures. Spinal Cord: Conus medullaris terminates at the L1-L2 level. Visualized cord demonstrates normal signal and size. Paraspinous Soft Tissues: No paravertebral masses. T11-T12: Minimal disc bulge. No canal stenosis or foraminal stenosis. T12-L1: Normal appearance. L1-L2: Minimal disc bulge. No canal stenosis or foraminal stenosis. L2-L3: Disc bulge. Mild facet hypertrophy. No canal stenosis or foraminal stenosis. L3-L4: Chronic disc height loss. 5 mm anterolisthesis L3 on L4. Somewhat prominent facet hypertrophy. No canal stenosis or foraminal stenosis. L4-L5: Mild chronic disc height loss. 5 mm anterolisthesis L4 on L5. Prominent bilateral facet hypertrophy. No canal stenosis. There is a facet joint cyst off the right facet into the right foramen, which is well seen on sagittal T2 image 4 of series 3. It is also present on axial image 26 of series 5. It does not impinge on the exiting right L4 nerve root. L5-S1: Somewhat prominent bilateral facet hypertrophy. Minimal disc bulge. No canal stenosis or foraminal stenosis. IMPRESSION: 1. There is multilevel underlying facet arthropathy, prominent at L3-L4 through L5-S1. 2. No canal stenosis or significant foraminal stenosis. Dictated by: Steven Horner M.D. on 12/23/2023 at 9:22 Approved by: Steven Horner M.D. on 12/23/2023 at 9:28
== END ==
PROVIDERS: Family Provider Family Medicine; PCP Family Medicine; Referring Provider Orthopaedic Surgery Adult Reconstructive Orthopaedic Surgery; Visit Provider Orthopaedic Surgery Adult Reconstructive Orthopaedic Surgery
DX: M48.062 Spinal stenosis, lumbar region with neurogenic claudication (principal); M47.816 Spondylosis without myelopathy or radiculopathy, lumbar region; M47.817 Spondylosis without myelopathy or radiculopathy, lumbosacral region
CPT/HCPCS: 72148

== ENCOUNTER → 2024-01-13 14:01 | Outpatient (CLI) | payer MEDICARE, OTHER, SELFPAY ==
--- NOTE | 2024-01-13 14:02 | DI.MG.S_ITS ---
BILATERAL DIGITAL SCREENING MAMMOGRAM 3D/2D WITH CAD POST LUMPECTOMY: 01/13/2024 CLINICAL: Routine screening. Personal history of right breast cancer. Family histroy of breast cancer. Comparison is made to exams dated: 12/25/2022 mammogram, 08/05/2020 mammogram, and 11/04/2018 mammogram - [facility]. Both breasts are heterogeneously dense, which may obscure small masses (category c / 51-75% glandular tissue). Current study was also evaluated with a Computer Aided Detection (CAD) system. There are benign calcifications in both breasts. There also are benign post operative findings in both breasts. No significant masses, calcifications, or other findings are seen in either breast. There has been no significant interval change. IMPRESSION: BENIGN There is no mammographic evidence of malignancy. A 1 year screening mammogram is recommended. This exam was interpreted at Station ID: [id number]. NOTE: For mammograms, a report in lay terms will be sent to the patient. Approximately 15% of breast malignancies will not be visualized mammographically. In the management of a palpable breast mass, a negative mammogram must not discourage biopsy of a clinically suspicious lesion. Electronically Signed By: Ruben harmon/bernardo:01/13/2024 16:27:18 copy to: Baljinder Worrell letter sent: Normal Exam ACR BI-RADS Category 2: Benign Finding(s) [id number]
== END ==
PROVIDERS: Family Provider Family Medicine; PCP Family Medicine; Referring Provider Family Medicine; Visit Provider Family Medicine
DX: Z12.31 Encounter for screening mammogram for malignant neoplasm of breast (principal); Z85.3 Personal history of malignant neoplasm of breast; Z80.3 Family history of malignant neoplasm of breast; R92.333 Mammographic heterogeneous density, bilateral breasts
CPT/HCPCS: 77063; 77067

== ENCOUNTER → 2024-01-18 14:13 | Outpatient (CLI) | payer MEDICARE, OTHER, SELFPAY ==
--- NOTE | 2024-01-18 14:16 | DI.MRI.S_ITS ---
PROCEDURE: MR CERVICAL SPINE WO CON INDICATIONS: chronic neck pain and right arm radiculopathy TECHNIQUE: Noncontrast sagittal T1 spin echo and T2 fast spin echo, sagittal STIR, foraminal oblique sagittal T2 fast spin echo, and axial gradient echo or T2 fast spin echo through the cervical spine. COMPARISON: None. FINDINGS: Image quality: Excellent. Alignment and Curvature: There is normal bony alignment. Bone Marrow: Marrow demonstrates normal overall signal. Spinal Cord: Visualized spinal cord has normal size and signal. No cerebellar tonsillar herniation. Paraspinous Soft Tissues: No paravertebral masses. Prevertebral soft tissues are normal in thickness. C2-C3: Normal appearance. C3-C4: Disc space narrowing and hypertrophic uncovertebral joints. No central stenosis. Mild bilateral foraminal stenosis. C4-C5: Disc space narrowing and hypertrophic arthropathy results in mild central stenosis. Moderate right and mild left foraminal stenosis. C5-C6: Disc space narrowing and posterior disc osteophyte complex with hypertrophic arthropathy results in moderate right foraminal stenosis. No central or left foraminal stenosis C6-C7: Disc space narrowing with posterior disc osteophyte complex. No central or foraminal stenosis C7-T1: Normal appearance. IMPRESSION: Multilevel degenerative disc disease and arthropathy results in varying degrees of central and foraminal stenosis including moderate right foraminal stenosis C4-5 and C5-6 Approved by: River Car M.D. on 01/20/2024 at 13:31
== END ==
LOC: MRI 14:14
PROVIDERS: Family Provider Family Medicine; PCP Family Medicine; Referring Provider Family Medicine; Visit Provider Family Medicine
DX: M50.11 Cervical disc disorder with radiculopathy, high cervical region (principal); M48.02 Spinal stenosis, cervical region; M47.22 Other spondylosis with radiculopathy, cervical region; G89.29 Other chronic pain
CPT/HCPCS: 72141

== ENCOUNTER → 2024-01-20 08:47 | Outpatient (CLI) | payer MEDICARE, OTHER, SELFPAY ==
--- NOTE | 2024-01-20 09:33 | DI.ECHO.S_ITS ---
[place] +---------+ [facility] : : [address] : [address] : : [id number] : : Phone: [phone] Echocardiogram Report + + :Name: EMIR BRADLEY Study Date: 01/20/2024 Height: 66 in : :Hospital ReadingLocation: Weight: 170 lb : : Gender: Female BSA: 1.9 m2 : :: 1935 Age: 88 yrs BP: 164/70 mmHg: :Reason For Study: CARDIAC MURMUR : :Ordering Physician: ROBERT, : :TED Blanco Performed By: Braulio Brar : :Referring: NABOR CABRERA : + + Interpretation Summary The ejection fraction is estimated to be 55-60%. The aortic valve is moderately calcified. There is mild to moderate aortic regurgitation. Compared to the prior echo study, there has been no change in the severity of aortic regurgitation. There is mild to moderately reduced leaflet mobility. There is mild aortic stenosis. The right ventricular systolic pressure is estimated to be at least 39 mmHg based on an estimated right atrial pressure of 3 mm Hg. Procedure: A two-dimensional transthoracic echocardiogram with color flow and Doppler was performed. The study quality was technically adequate. Comparison is made with the echocardiogram of 10/06/2021. The patient was in normal sinus rhythm during the exam. The heart rate ranged between 58-72 bpm during the study. Left Ventricle: The left ventricle is normal in size. There is mild asymmetric left ventricular hypertrophy. The ejection fraction is estimated to be 55-60%. Left ventricular wall motion is normal. Right Ventricle: Borderline right ventricular enlargement. The right ventricular systolic function is normal. Atria: The left atrium is mildly dilated. Right atrial size is normal. The interatrial septum grossly appears intact with no obvious evidence for an atrial septal defect. Mitral Valve: The mitral valve is normal. There is no mitral valve stenosis. There is trace mitral regurgitation. Aortic Valve: The aortic valve is trileaflet. The aortic valve is moderately calcified. There is mild to moderately reduced leaflet mobility. There is mild aortic stenosis. There is mild to moderate aortic regurgitation. Compared to the prior echo study, there has been no change in the severity of aortic regurgitation. Tricuspid Valve: The tricuspid valve is normal in structure and function. There is no tricuspid stenosis. There is trace tricuspid regurgitation. The right ventricular systolic pressure is estimated to be at least 39 mmHg based on an estimated right atrial pressure of 3 mm Hg. Pulmonic Valve: The pulmonic valve is not well visualized. There is no pulmonic valvular stenosis. There is a trace or physiologic amount of pulmonic regurgitation. Great Vessels: The aortic root is normal size. The dimensions of the ascending aorta are normal. The IVC is of normal diameter and collapses greater than 50% with a sniff. This suggests a low right atrial pressure of 3 mm Hg. Pericardium/ Pleura There is no pericardial effusion. There is no pleural effusion. MMode/2D Measurements & Calculations LVIDd: 4.0 cm LVOT diam: 2.4 cm LVIDs: 3.0 cm Ao root diam: 3.4 cm FS: 25.7 % asc Aorta Diam: 3.7 cm IVSd: 1.4 cm Ao Arch Diam (Prox Trans): 2.9 cm LVPWd: 1.1 cm LV jennings. diameter/BSA (cm/m^2): 2.1 LV sys. diameter/BSA (cm/m^2): 1.6 LA A2 area: 27.2 cm2 RA long axis: 5.3 cm LA A4 area: 18.9 cm2 RA area: 17.7 cm2 LA length (vol): 5.7 cm RA vol: 50.0 ml LA vol: 77.2 ml RA : 26.8 ml/m2 LA vol index: 41.3 ml/m2 IVC diam: 1.3 cm RVD1 (basal): 4.0 cm RVD2 (mid): 3.4 cm TAPSE: 2.3 cm Doppler Measurements & Calculations Ao V2 max: 203.7 cm/sec LVOT Max Yasmani: 98.3 cm/sec Ao V2 mean: 153.8 cm/sec LV V1 max P.9 mmHg Ao max P.6 mmHg LV V1 VTI: 23.3 cm Ao mean P.3 mmHg FABIENNE(I,D): 2.1 cm2 Ao V2 VTI: 50.3 cm FABIENNE(V,D): 2.2 cm2 sev ratio: 0.46 FABIENNE indexed to BSA (cm^2/m^2): 1.1 AI P1/2t: 366.0 msec AI dec slope: 300.7 cm/sec2 Med Peak E' Yasmani: 5.1 cm/sec TR max yasmani: 302.3 cm/sec Lat Peak E' Yasmani: 7.8 cm/sec TR max P.5 mmHg PA V2 max: 94.7 cm/sec PA V2 mean: 65.4 cm/sec PA mean P.9 mmHg PA pr(Accel): 41.3 mmHg SV(LVOT): 104.3 ml Reading Physician:03:03 PM
--- NOTE | 2024-01-20 09:33 | DI.US.S_ITS ---
PROCEDURE: US CAROTID DOPPLER BI INDICATIONS: Possible TIA involving R eye TECHNIQUE: Color and pulse Doppler interrogation was performed of both carotid systems, with image documentation and velocity measurements. COMPARISON: [facility], MR, MR STROKE, 10/06/2021, 11:15. [facility], US, US CAROTID BILATERAL, 09/14/2019, 12:36. FINDINGS: Stenosis calculations are based on SRU (Society of Radiologists in Ultrasound) criteria. The flow velocities and the arterial waveforms are normal within both carotid arterial systems. Atherosclerotic plaque is seen on on the left. The estimated degree of internal carotid artery stenosis is less than 50%. Antegrade flow is confirmed within both vertebral arteries. IMPRESSION: No hemodynamically significant stenosis is seen. Atherosclerotic plaque is seen on the left. Dictated by: Paresh Tsang M.D. on 01/20/2024 at 11:37 Approved by: Paresh Tsang M.D. on 01/20/2024 at 11:41
[2024-01-20 12:12] LABS: Add Manual Diff / Slide Review NO; Basophils Absolute Auto 0 /uL (0-100); Basophils Percent Auto 0.4 % (0-2); Eosinophils Absolute Auto 100 /uL (0-450); Eosinophils Percent Auto 1.5 % (2-4); Hematocrit 40.6 % (36-46); Hemoglobin 13.8 g/dL (12.0-16.0); Lymphocytes Absolute Auto 1900 /uL (1100-4500); Lymphocytes Percent Auto 38.8 % (25-40); Mean Corpuscular HGB Conc 33.9 % (30-36); Mean Corpuscular Hemoglobin 31.1 PG (26-34); Mean Corpuscular Volume 91.6 fL (80-100); Monocytes Absolute Auto 400 /uL (0-900); Monocytes Percent Auto 7.7 % (3-14); Neutrophils Absolute Auto 2500 /uL (1500-7000); Neutrophils Percent Auto 51.6 % (50-75); Platelet Count 165 X10^3/uL (150-400); Red Blood Cell Count 4.43 X10^6/uL (4.0-5.2); Red Cell Distribution Width 14.5 % (11.6-14.8); White Blood Cell Count 4.8 X10^3/uL (4.5-11.0)
[2024-01-20 12:51] LABS: Alanine Aminotransferase 14 IU/L (<35); Albumin 4.2 g/dL (3.5-5.0); Albumin Globulin Ratio 1.6 (1.0-2.8); Alkaline Phosphatase 67 U/L (38-126); Aspartate Aminotransferase 21 IU/L (14-36); BUN Creatinine Ratio 23.4 (6-22); Bilirubin Total 0.6 mg/dL (0.2-1.3); Blood Urea Nitrogen 15 mg/dL (7-17); Calcium 9.4 mg/dL (8.4-10.2); Carbon Dioxide 30 mmol/L (22-32); Chloride 106 mmol/L (98-107); Cholesterol 212 mg/dL (140-199); Estimated Glomerular Filt Rate > 60 mL/min (>60); Globulin 2.7 g/dL (1.7-4.1); Glucose 79 mg/dL (80-110); HDL Cholesterol 59 mg/dL (40-60); HEMOLYSIS < 15 (0-50); LDL Cholesterol Calculated 113 mg/dL (<100); Potassium 4.1 mmol/L (3.4-5.1); Sodium 140 mmol/L (137-145); Total Protein 6.9 g/dL (6.3-8.2); Triglycerides 202 mg/dL (35-150)
[2024-01-20 13:21] LABS: TSH w/ Reflex to FT4 0.64 uIU/mL (0.47-4.68)
[2024-01-20 15:40] LABS: Creatinine Urine Random 58.3 mg/dL
[2024-01-20 15:47] LABS: Microalbumi Creatinin Ratio Ur 17.1 ug/mg CR (<30)
[2024-01-21 06:08] LABS: Apolipoprotein B 107 mg/dL (<90)
== END ==
PROVIDERS: Family Provider Family Medicine; PCP Family Medicine; Referring Provider Psychiatry & Neurology Neurology; Visit Provider Psychiatry & Neurology Neurology
DX: I35.2 Nonrheumatic aortic (valve) stenosis with insufficiency (principal); I65.22 Occlusion and stenosis of left carotid artery; I70.0 Atherosclerosis of aorta; E78.2 Mixed hyperlipidemia; R01.1 Cardiac murmur, unspecified; I77.89 Other specified disorders of arteries and arterioles; M54.16 Radiculopathy, lumbar region; E03.9 Hypothyroidism, unspecified
CPT/HCPCS: 36415; 80053; 80061; 82043; 82172; 82570; 84443; 85025; 93306; 93880